=== PATIENT | male | born 1930 | race Caucasian/White ===

== ENCOUNTER 2016-09-06 16:08 | Emergency (ER) | payer MEDICARE, BC ==
[~2016-09-06 16:08] MED LIST: Sterile Water Irrigation 250 ML BOT ONE
[2016-09-06] MEDS ORDERED: Triple Antibiotic Oint 1 GM Packet ONE (16:44)
[2016-09-06] MEDS ORDERED: traMADol HCl 50 MG TAB ONE (16:44)
[2016-09-06] MEDS ORDERED: Adacel (T-DAP) 0.5 ML VIAL ONE (16:44)
[2016-09-06] MEDS ORDERED: Cephalexin 500 MG CAP ONE (16:44)
--- NOTE | 2016-09-06 17:56 | CT ---
CERVICAL SPINE CT: 09/06/16 CLINICAL HISTORY: Pain, fall. FINDINGS: The craniocervical junction is intact. There is no evidence of compression fracture or traumatic sub luxation. Multilevel degenerative change present. Contents of the vertebral canal are limited in ass essment by noncontrast imaging. IMPRESSION: No acute cervical spine fracture, or traumatic subluxation. POS: [facility]
--- NOTE | 2016-09-06 17:59 | CT ---
HEAD CT NONCONTRAST 09/06/16 CLINICAL HISTORY: Fall, left facial trauma. COMPARISON: 02/05/11. FINDINGS: There is prominence of ventricular system related to patient's age with parenchymal atrophy as well as mild to moderate chronic microvascular ischemic disease. There is no evidence of acute intracrani al hemorrhage, mass effect or midline shift. There are lacunar infarctions involving the cerebellum bilaterally. IMPRESSION: No acute intracranial hemorrhage or mass effect. POS: [facility]
--- NOTE | 2016-09-06 18:01 | CT ---
CT OF FACE NONCONTRAST: 09/06/16 INDICATION: Fall with facial injury. FINDINGS: There is a mildly displaced right side nasal bone fracture. Partial opacification of right maxillary sinus is present and there is mucosal thickening of the ethmoid air cells. Otherwise, no acute para nasal sinus fluid level is present. There is no evidence of a displaced orbital wall fracture. Bilat eral temporomandibular joint osteoarthritis is present. The left buccal soft tissue hematoma present . The anterior aspect of the underlying left zygomatic arch is intact. IMPRESSION: Mildly displaced nasal bone fracture. Left buccal region soft tissue hematoma. POS: [facility]
== END 2016-09-06 18:45 | disposition home or self-care (01) ==
LOC: MADERS 16:08
DX: T07 Unspecified multiple injuries (principal); S00.03XA Contusion of scalp, initial encounter; S00.83XA Contusion of other part of head, initial encounter; G20 Parkinson's disease; Z87.891 Personal history of nicotine dependence; W19.XXXA Unspecified fall, initial encounter
CPT/HCPCS: 70450; 70486; 72125; 90471; 90715

== ENCOUNTER 2016-11-15 08:49 | Outpatient (CLI) | payer MEDICARE, BC ==
[2016-11-15 09:18] LABS: Hemoglobin A1c 6.8 % (4.0-6.0)
[2016-11-15 10:04] LABS: ALT (SGPT) 9 U/L (8-55); AST (SGOT) 13 U/L (5-34); Albumin 4.1 g/dL (3.4-4.8); Alkaline Phosphatase 65 U/L (40-150); Anion Gap 19 mmol/L (10-20); BUN (Urea Nitrogen) 19 mg/dL (8.4-25.7); Bilirubin, Direct 0.3 mg/dL (0.1-0.3); Bilirubin, Total 0.8 mg/dL (0.2-1.2); Calc. Creatinine Clearance 0 mL/min (70-130); Calcium 9.4 mg/dL (7.8-10.44); Carbon Dioxide 22 mmol/L (23-31); Chloride 101 mmol/L (98-107); Cholesterol 105 mg/dl (< 200 Desired); Estimated GFR-MDRD 72; Glucose 145 mg/dL (83-110); HDL Cholesterol 26 mg/dL (>60 Neg Risk); LDL Cholesterol, Calculated 49 mg/dL; Potassium 4.3 mmol/L (3.5-5.1); Protein, Total 6.8 g/dL (5.8-8.1); Sodium 138 mmol/L (136-145); Triglycerides 148 mg/dL (Less than 150)
== END 2016-11-15 08:50 | disposition home or self-care (01) ==
LOC: MADLAB 08:49
PROVIDERS: ATTEND Internal Medicine Cardiovascular Disease
DX: I25.10 Atherosclerotic heart disease of native coronary artery without angina pectoris (principal)
CPT/HCPCS: 36415; 80048; 80061; 80076; 83036

== ENCOUNTER 2017-07-23 09:56 | Outpatient (CLI) | payer MEDICARE, BC ==
[2017-07-23 11:15] LABS: #Basophils 0.1 thou/uL (0.0-0.2); #Eosinphils 0.3 thou/uL (0.0-0.7); #Lymphocytes 1.8 thou/uL (1.20-3.40); #Monocytes 0.5 thou/uL (0.11-0.59); #Neutrophils 3.9 thou/uL (1.40-6.50); %Basophils 0.8 % (0.0-1.0); %Eosinophils 4.4 % (0.0-10.0); %Monocytes 7.3 % (0.0-10.0); %Neutrophils 59.5 % (42.0-75.0); Hemoglobin 15.3 g/dL (14.0-18.0); Mean Corpuscular HGB CONC 32.1 g/dL (32.0-36.0); Mean Corpuscular Hemoglobin 33.5 pg (27.0-31.0); Mean Corpuscular Volume 104.4 fl (80.0-94.0); Mean Platelet Volume 9.7 fL (7.4-10.4); Platelet Count 129 thou/uL (130-400); RBC Distribution Width 12.3 % (11.5-14.5); Red Blood Cell (RBC) Count 4.58 mill/uL (4.70-6.10); White Blood Cell (WBC) Count 6.5 thou/uL (4.8-10.8)
[2017-07-23 11:38] LABS: ALT (SGPT) 11 U/L (8-55); AST (SGOT) 12 U/L (5-34); Albumin 4.1 g/dL (3.4-4.8); Alkaline Phosphatase 66 U/L (40-150); Anion Gap 15 mmol/L (10-20); BUN (Urea Nitrogen) 13 mg/dL (8.4-25.7); Bilirubin, Direct 0.3 mg/dL (0.1-0.3); Bilirubin, Total 0.7 mg/dL (0.2-1.2); Calc. Creatinine Clearance 0 mL/min (70-130); Calcium 9.5 mg/dL (7.8-10.44); Carbon Dioxide 27 mmol/L (23-31); Cardiac Risk 3.7 (Less than 4.5); Chloride 105 mmol/L (98-107); Cholesterol 110 mg/dl (< 200 Desired); Estimated GFR-MDRD 70; Glucose 156 mg/dL (83-110); HDL Cholesterol 30 mg/dL (>60 Neg Risk); LDL Cholesterol, Calculated 60 mg/dL; Potassium 4.4 mmol/L (3.5-5.1); Protein, Total 6.5 g/dL (5.8-8.1); Sodium 143 mmol/L (136-145); Triglycerides 101 mg/dL (Less than 150)
[2017-07-23 17:17] LABS: Hemoglobin A1c 6.5 % (4.0-6.0)
== END 2017-07-23 09:57 | disposition home or self-care (01) ==
LOC: MADLABBHPM 09:56
PROVIDERS: ATTEND Family Medicine
DX: E78.00 Pure hypercholesterolemia, unspecified (principal); R82.90 Unspecified abnormal findings in urine; E11.9 Type 2 diabetes mellitus without complications; R53.1 Weakness
CPT/HCPCS: 36415; 80048; 80061; 80076; 83036; 84443; 85025

== ENCOUNTER 2017-07-24 09:05 | Outpatient (CLI) | payer MEDICARE, BC ==
[2017-07-24 13:37] LABS: Bilirubin Negative (Negative); Blood, Urine Negative (Negative); Clarity Clear (Clear); Glucose, Urine (Dipstick) Negative (Negative); Leukocyte Negative (Negative); Nitrite Negative (Negative); Protein, Urine (Dipstick) Negative (Neg-Trace); Urobilinogen 0.2 mg/dL (0.2-1.0); pH, Urine 5.5 (5.0-9.0)
[2017-07-24 13:41] LABS: Bacteria/HPF Rare-Few HPF (None Seen); RBC/HPF 0-3 HPF (0-3); Squamous Epithelial 0-3 HPF (0-3); WBC/HPF 0-3 HPF (0-3)
== END 2017-07-24 09:06 | disposition home or self-care (01) ==
LOC: MADLABBHPM 09:05
PROVIDERS: ATTEND Family Medicine
DX: R82.90 Unspecified abnormal findings in urine (principal)
CPT/HCPCS: 36415; 81001; 87086

== ENCOUNTER 2017-12-02 13:21 | Emergency (ER) | payer MEDICARE, BC ==
[2017-12-02 14:01] LABS: #Eosinphils 0.3 thou/uL (0.0-0.7); #Lymphocytes 1.8 thou/uL (1.20-3.40); #Monocytes 0.5 thou/uL (0.11-0.59); #Neutrophils 4.1 thou/uL (1.40-6.50); %Basophils 0.6 % (0.0-1.0); %Eosinophils 4.1 % (0.0-10.0); %Lymphocytes 26.9 % (21.0-51.0); %Neutrophils 61.4 % (42.0-75.0); Hemoglobin 14.2 g/dL (14.0-18.0); Mean Corpuscular HGB CONC 32.4 g/dL (32.0-36.0); Mean Corpuscular Hemoglobin 32.3 pg (27.0-31.0); Mean Corpuscular Volume 99.7 fL (78.0-98.0); Mean Platelet Volume 8.2 fL (7.4-10.4); Platelet Count 134 thou/uL (130-400); RBC Distribution Width 12.1 % (11.5-14.5); Red Blood Cell (RBC) Count 4.41 mill/uL (4.70-6.10); White Blood Cell (WBC) Count 6.6 thou/uL (4.8-10.8)
[2017-12-02 14:05] LABS: INR-International Normal Ratio 0.9; Prothrombin Time 12.7 SEC (12.0-14.7)
[2017-12-02 14:15] LABS: ALT (SGPT) Less than 7 U/L (8-55); AST (SGOT) 9 U/L (5-34); Albumin 3.9 g/dL (3.4-4.8); Alkaline Phosphatase 59 U/L (40-150); Anion Gap 15 mmol/L (10-20); BUN (Urea Nitrogen) 19 mg/dL (8.4-25.7); Bilirubin, Total 0.6 mg/dL (0.2-1.2); Calc. Creatinine Clearance 0 mL/min (70-130); Calcium 9.5 mg/dL (7.8-10.44); Carbon Dioxide 23 mmol/L (23-31); Chloride 106 mmol/L (98-107); Estimated GFR-MDRD 90; Globulin 2.6 g/dL (2.4-3.5); Glucose 175 mg/dL (83-110); Potassium 4.3 mmol/L (3.5-5.1); Protein, Total 6.5 g/dL (5.8-8.1); Sodium 140 mmol/L (136-145)
--- NOTE | 2017-12-02 14:51 | CT ---
CT BRAIN WITHOUT CONTRAST: HISTORY: Fall. Alzheimer's. Dementia. COMPARISON: CT brain 09/06/16. FINDINGS: There is mild atrophy. 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 No midline shift or mass effect. Moderate atrophy with ex vacuo dilatation of the ventricular system and extraaxial CSF spaces. Old right nasal bone fracture. IMPRESSION: Chronic changes. No acute intracranial abnormality. POS: [facility]
--- NOTE | 2017-12-02 15:16 | CT ---
NONCONTRAST CT THORAX: DATE: 12/02/17. HISTORY: Fall 2 weeks ago. Persistent chest pain. Injury. COMPARISON: None available. FINDINGS: Dense atherosclerotic vascular calcifications are seen in the coronary arteries as well as involving the thoracic aorta and visualized abdominal aorta. There is an abdominal aortic aneurysm partially i lisa which measures 4.12 cm x 3.8 cm in greatest axial dimensions. This previously measured 3.3 cm in maximum dimensions on the prior study in 2005. Lack of intravenous contrast does limit evaluation of mediastinal structures and vasculature. Howeve r, no enlarged lymph nodes are seen by CT size criteria. Postsurgical changes related to CABG are no scotty. There is dependent atelectasis bilaterally. This exam is obtained in expiratory phase of imaging. N o discrete pulmonary nodule or mass is seen. There is no pleural effusion or pulmonary nodule presen t. There are 2 hypodense lesions seen in the right hepatic lobe which were also seen on CT exam in 2006 and given stability over this period of time suggests benign finding or likely related to hepatic cys ts. There is mild nonspecific symmetric bilateral perinephric stranding. There is colonic diverticulosis. The spleen, pancreas, and bilateral adrenal glands demonstrate a grossly normal nonenhanced CT appear ance. CT THORACIC SPINE: Vertebral body heights are within normal limits. There is a prominent Schmorl's node in the superior end plate of the T12 vertebral body. The remaining vertebral body heights are within normal limits and there is no fracture or subluxation involving the thoracic spine. Multilevel degenerative change s are seen in the visualized lower cervical spine as well as involving the thoracic spine and lower l umbar spine. There is bilateral glenohumeral osteoarthropathy. IMPRESSION: 1. Limited examination due to lack of intravenous contrast, but no definite acute findings are visua lized within the chest. 2. Extensive atherosclerotic vascular calcifications involving the coronary arteries as well as the thoracic and abdominal aorta. 3. Abdominal aortic aneurysm measuring 4.1 cm in greatest dimensions. This is larger in size compar ed to the study on 02/18/06 where the greatest measurement was 3.3 cm. 4. There is a coarse calcification in the region of an enlarged left periaortic lymph node seen on t he study in 2005. There is no lymphadenopathy seen on today's exam. 5. Right hepatic lobe cyst. 6. Colonic diverticulosis. 7. Degenerative changes in the spine. POS: [facility]
--- NOTE | 2017-12-02 15:18 | CT ---
CT CERVICAL SPINE WITHOUT CONTRAST: Date: 12/02/17 INDICATION: History of fall with neck pain. COMPARISON: Prior exam dated 09/06/16. FINDINGS: No acute fracture or subluxation is evident. Mild to moderate spondylosis involving the cervical spin e is stable. Craniocervical junction appears within normal limits. Chronic lung changes involving the lung apices appear similar. IMPRESSION: No acute fracture or subluxation is demonstrated. Stable spondylosis. POS: [facility]
== END 2017-12-02 16:00 | disposition home or self-care (01) ==
LOC: MADERS 13:21
DX: M54.6 Pain in thoracic spine (principal); Z87.891 Personal history of nicotine dependence; Z79.899 Other long term (current) drug therapy; Z79.84 Long term (current) use of oral hypoglycemic drugs; G20 Parkinson's disease; W18.30XA Fall on same level, unspecified, initial encounter
CPT/HCPCS: 36415; 70450; 71250; 72125; 80053; 83880; 84484; 85025; 85610; 93005

== ENCOUNTER 2018-10-28 14:24 | Inpatient (IN) | payer MEDICARE, BC ==
[~2018-10-28 14:24] MED LIST changes: +Iopamidol 370 76% 100 ML VIAL ONE; +Sodium Chloride 0.9% 1,000 ML BAG ONE; -Sterile Water Irrigation 250 ML BOT ONE
[2018-10-28 15:37] LABS: #Eosinphils 0.2 thou/uL (0.0-0.7); #Lymphocytes 1.6 thou/uL (1.20-3.40); #Monocytes 0.6 thou/uL (0.11-0.59); #Neutrophils 4.4 thou/uL (1.40-6.50); %Basophils 0.7 % (0.0-1.0); %Eosinophils 2.5 % (0.0-10.0); %Lymphocytes 23.5 % (21.0-51.0); %Monocytes 8.5 % (0.0-10.0); %Neutrophils 64.8 % (42.0-75.0); Hemoglobin 15.3 g/dL (14.0-18.0); Mean Corpuscular HGB CONC 31.8 g/dL (32.0-36.0); Mean Corpuscular Hemoglobin 32.4 pg (27.0-31.0); Mean Corpuscular Volume 101.7 fL (78.0-98.0); Platelet Count 166 thou/uL (130-400); RBC Distribution Width 13.1 % (11.5-14.5); Red Blood Cell (RBC) Count 4.72 mill/uL (4.70-6.10); White Blood Cell (WBC) Count 6.7 thou/uL (4.8-10.8)
[2018-10-28 15:47] LABS: ALT (SGPT) Less than 7 U/L (8-55); AST (SGOT) 16 U/L (5-34); Albumin 4.1 g/dL (3.4-4.8); Alkaline Phosphatase 97 U/L (40-150); Anion Gap 16 mmol/L (10-20); BUN (Urea Nitrogen) 14 mg/dL (8.4-25.7); Bilirubin, Total 0.6 mg/dL (0.2-1.2); Calc. Creatinine Clearance 0 mL/min (70-130); Calcium 9.5 mg/dL (7.8-10.44); Carbon Dioxide 22 mmol/L (23-31); Chloride 105 mmol/L (98-107); Estimated GFR-MDRD Greater than 90; Globulin 3.2 g/dL (2.4-3.5); Glucose 101 mg/dL (83-110); Potassium 4.4 mmol/L (3.5-5.1); Protein, Total 7.3 g/dL (5.8-8.1); Sodium 139 mmol/L (136-145)
[2018-10-28 19:25] LABS: Lactic Acid 2.4 mmol/L (0.5-2.2)
--- NOTE | 2018-10-28 20:02 | CT ---
CT CHEST, ABDOMEN AND PELVIS WITH IV CONTRAST CT THORACIC AND LUMBAR SPINE: 10/28/18 HISTORY: Pain to right abdomen and thorax. Hypoxia. Patient states fell two days ago. Injury. COMPARISON: CT thorax of 12/02/17. FINDINGS: Dense vascular calcifications are seen in the thoracic aorta and involving the coronal arteries. Ther e are no findings to suggest an aortic injury. Postsurgical changes related to CABG are again seen. This exam is obtained in expiratory phase of imaging with resultant atelectasis bilaterally. No pneum othorax or pleural effusion is identified. Osteopenia is present. Nondisplaced fractures are seen involving the anterolateral right sixth and se venth ribs. CT ABDOMEN AND PELVIS: There are multiple subcentimeter too small to characterize hypodense lesions seen in each lobe of the liver. A larger 1.4 cm hypodense lesion is seen in the right hepatic lobe. These hypodense lesions w ere seen on a CT abdomen in 2006 and are most likely related to cysts. The spleen, pancreas, bilateral adrenal glands, and kidneys demonstrate a normal CT appearance for a rterial phase of imaging. The urinary bladder is decompressed. There is a calcification seen within the right posterolateral as pect of the urinary bladder. This may represent calcification in the wall of the urinary bladder vers us calculus layering within the dependent portion of the urinary bladder. Prostate gland demonstrates calcifications and heterogeneous appearance. There is a large amount of retained fecal material seen within the rectum. There is slight haziness s urrounding the distended rectum which is dilated and measuring 11.2 cm in diameter. There is mild haz iness of the perirectal fat. There is suggested thinning of the harrell of the rectum, and foci of gas within the wall of the rectum is not entirely excluded. Findings could be related to stercoral colit is. Clinical correlation is recommended. There is evidence of colonic diverticulosis. An infrarenal abdominal aortic aneurysm is seen measuring 4.5 cm x 4 cm with associated mural thrombu s. Measurements on the CT scan exam in 2018 were 4.1 cm x 3.8 cm. No free fluid or free intraperitoneal gas is seen in the abdomen or pelvis. CT THORACIC AND LUMBAR SPINE: There is suggestion of slight wedge shaped deformity of the T8 vertebral body which is more pronounce d than on prior exam on 12/02/17 and this may represent a minimal compression fracture of the T8 verte bral body of indeterminate age. Remaining vertebral body heights are within normal limits and there i s no subluxation. Multilevel degenerative changes are seen in the thoracic as well as involving the l umbar spine. IMPRESSION: 1. Findings suggestive of stercoral colitis with dilatation of the rectum and fecal impaction wi th areas of severe focal thinning of the harrell of the rectum. There are a few areas of severe thinnin g versus gas within the bowel wall in this region. There is no portal venous gas seen. No free intrap eritoneal gas is identified. 2. Nondisplaced right lateral sixth and seventh rib fractures. No pneumothorax or pleural effusi on is seen. 3. Atherosclerotic vascular calcifications and plaque with evidence of an infrarenal abdominal a ortic aneurysm mildly enlarged when compared to prior exam with greatest transverse dimension of 4.5 cm. 4. Calcification right posterolateral aspect of the urinary bladder which could be related to ca lcification in the wall of the urinary bladder versus calculus layering dependently. 5. Above findings were discussed with Dr. Bender in the Emergency Department on 10/28/18 at 1654 ho urs including findings suggesting stercoral colitis and questionable air within the rectal wall. POS: [facility]
[2018-10-28] MEDS ORDERED: Ondansetron PF 4 MG/2 ML Vial SLOW IVP PRN (21:54)
[2018-10-28] MEDS ORDERED: HYDROcodone/Acetaminophen 5/325 mg Tablet PO PRN ×2 (21:54)
[2018-10-28] MEDS ORDERED: Loratadine 10 MG TAB PO PRN (22:00)
[2018-10-28] MEDS ORDERED: Temazepam 15 MG CAP PO SCH (22:15)
[2018-10-28] MEDS ORDERED: Senokot S 8.6-50 MG TAB PO SCH (22:15)
[2018-10-28] MEDS ORDERED: Lorazepam 1 MG TAB PO PRN (22:15)
[2018-10-28] MEDS: Acetaminophen/Codeine 30-300mg Tablet PO PRN (22:19)
[2018-10-28] MEDS ORDERED: Polyethylene Glycol 3350 17 GM Packet PO SCH (22:30)
[2018-10-28 23:16] VITALS: BMI 21.9
[2018-10-29 05:19] LABS: #Basophils 0.1 thou/uL (0.0-0.2); #Eosinphils 0.3 thou/uL (0.0-0.7); #Lymphocytes 2.1 thou/uL (1.20-3.40); #Monocytes 0.5 thou/uL (0.11-0.59); #Neutrophils 2.7 thou/uL (1.40-6.50); %Eosinophils 4.8 % (0.0-10.0); %Lymphocytes 37.2 % (21.0-51.0); %Neutrophils 48.1 % (42.0-75.0); Hemoglobin 14.2 g/dL (14.0-18.0); Mean Corpuscular HGB CONC 32.8 g/dL (32.0-36.0); Mean Corpuscular Hemoglobin 33.1 pg (27.0-31.0); Mean Platelet Volume 7.7 fL (7.4-10.4); Platelet Count 143 thou/uL (130-400); RBC Distribution Width 13.1 % (11.5-14.5); Red Blood Cell (RBC) Count 4.29 mill/uL (4.70-6.10); White Blood Cell (WBC) Count 5.6 thou/uL (4.8-10.8)
[2018-10-29 05:27] LABS: Anion Gap 12 mmol/L (10-20); BUN (Urea Nitrogen) 11 mg/dL (8.4-25.7); Calc. Creatinine Clearance 74 mL/min (70-130); Calcium 8.8 mg/dL (7.8-10.44); Carbon Dioxide 28 mmol/L (23-31); Chloride 106 mmol/L (98-107); Estimated GFR-MDRD Greater than 90; Glucose 85 mg/dL (83-110); Potassium 4.2 mmol/L (3.5-5.1); Sodium 142 mmol/L (136-145)
[2018-10-29] MEDS ORDERED: Hydrocerin (Eucerin) Cream 120 gm Jar TOP PRN (07:53)
[2018-10-29] MEDS: Senokot S 8.6-50 MG TAB PO SCH (08:29)
[2018-10-29] MEDS: Polyethylene Glycol 3350 17 GM Packet PO SCH ×8 (08:29→19:21)
[2018-10-29] MEDS: Pramipexole Di-HCl 0.25 MG TAB PO SCH ×2 (08:29→15:08)
[2018-10-29] MEDS: Aspirin 81 mg Enteric Coated Tablet PO SCH (08:30)
[2018-10-29] MEDS: metFORMIN 500 MG TAB PO SCH ×2 (08:30→17:02)
[2018-10-29] MEDS: Carbidopa/Levodopa CR 50-200 mg Tablet PO SCH ×2 (08:30→15:07)
[2018-10-29] MEDS ORDERED: Hydrocerin (Eucerin) Cream 120 gm Jar TOP SCH (09:00)
[2018-10-29] MEDS ORDERED: Prevnar 13-Val Conj/PF 0.5 ML SYRINGE IM ONE (09:00)
[2018-10-29] MEDS ORDERED: Famotidine/PF 20 mg/2ml Vial SLOW IVP SCH (09:00)
[2018-10-29] MEDS ORDERED: Enoxaparin Sodium 40 MG/0.4 ML SYRINGE SC SCH (09:00)
[2018-10-29] MEDS: Acetaminophen/Codeine 30-300mg Tablet PO PRN (09:20)
[2018-10-29] MEDS ORDERED: Bisacodyl 10 MG SUPP PR PRN (09:35)
[2018-10-29] MEDS ORDERED: Bisacodyl 10 MG SUPP PR SCH ×2 (09:45→16:00)
[2018-10-29] MEDS: Mineral Oil ENEMA PR SCH ×2 (10:03→16:55)
[2018-10-29] MEDS ORDERED: Mineral Oil ENEMA PR SCH (10:45)
[2018-10-29 12:12] LABS: Hemoglobin A1c 5.7 % (4.0-6.0)
[2018-10-29] MEDS ORDERED: EUCERIN CREME 57 GRAM TUBE TP PRN (13:32)
[2018-10-29] MEDS ORDERED: Lorazepam 1 MG TAB PO PRN (13:39)
[2018-10-29] MEDS: Lorazepam 0.5 MG TAB PO PRN ×2 (13:50→15:06)
[2018-10-29] MEDS ORDERED: Lorazepam 0.5 MG TAB PO SCH (16:00)
[2018-10-29] MEDS ORDERED: Polyethylene Glycol 3350 17 GM Packet PO SCH (16:00)
--- NOTE | 2018-10-29 19:40 | RAD ---
PORTABLE AP CHEST X-RAY 10/29/18 HISTORY: Low oxygen saturation. COMPARISON: 02/05/11 and 07/10/12. FINDINGS: Postsurgical changes related to CABG are again noted. Cardiac silhouette is magnified by patient rota tion and portable technique of the exam as well as shallow depth of inspiration. Pulmonary vasculatur e is within normal limits. There is atelectasis present at the left lung base. Lungs otherwise appear grossly clear. There is no pleural effusion or consolidation seen. Vascular calcifications are seen in the thoracic aorta. Remote left sided rib fractures are again seen. IMPRESSION: Stable chest without evidence of an acute cardiopulmonary process. POS: [facility]
[2018-10-29] MEDS ORDERED: Enoxaparin Sodium 80 MG/0.8 ML SYRINGE ONE (22:15)
[2018-10-30] MEDS ORDERED: Aspirin 81 mg Enteric Coated Tablet ONE (07:27)
[2018-10-30] MEDS ORDERED: metFORMIN 500 MG TAB ONE (07:49)
[2018-10-30] MEDS ORDERED: Pramipexole Di-HCl 0.25 MG TAB ONE (07:51)
[2018-10-30] MEDS ORDERED: Senokot S 8.6-50 MG TAB ONE (07:51)
[2018-10-30] MEDS ORDERED: Carbidopa/Levodopa CR 50-200 mg Tablet ONE (07:52)
[2018-10-30] MEDS: Aspirin 81 mg Enteric Coated Tablet PO SCH (08:00)
[2018-10-30] MEDS: Carbidopa/Levodopa CR 50-200 mg Tablet PO SCH ×4 (08:00→21:17)
[2018-10-30] MEDS: Pramipexole Di-HCl 0.25 MG TAB PO SCH ×4 (08:00→21:18)
[2018-10-30] MEDS: Senokot S 8.6-50 MG TAB PO SCH ×3 (08:00→21:20)
[2018-10-30] MEDS: metFORMIN 500 MG TAB PO SCH ×2 (08:00→17:05)
--- NOTE | 2018-10-30 08:47 | CT ---
CT PULMONARY ANGIOGRAM WITH IV CONTRAST AND 3D POSTPROCESSING: HISTORY: Elevated D-dimer. FINDINGS: There is good contrast opacification of the pulmonary arterial vasculature without filling defects to suggest pulmonary embolism. The thoracic aorta is well opacified without aneurysm or dissection. N o pleural or pericardial effusions are seen. There are dependent changes in the lung bases. No pneu mothoraces or focal areas of consolidation are seen. Nondisplaced right lateral 6th and 7th rib frac tures noted on CT chest, abdomen, and pelvis of previous day are seen. IMPRESSION: No CT evidence of pulmonary embolism. POS: [facility]
--- NOTE | 2018-10-30 09:38 | HP ---
Admitted to Acute Care at [facility] on the evening of 10/28/2018. CHIEF COMPLAINT: Fall, pain in the right lateral chest, and constipation. HISTORY OF PRESENT ILLNESS: The patient is an 88-year-old white male, who resides at home. He has a history of Parkinson disease, dementia with behavioral disturbance, insomnia, coronary artery disease, diabetes mellitus type 2, hypertension, and hypoxemia requiring supplemental O2. The patient has been under hospice care. He lives at his home, where he is attended by his and family members and ladies who had been hired to come in and assist. The patient is very weak and requires assistance with his ADLs. The patient had gotten up out of bed on his own early on the morning of 10/26, and his caregivers found him slumped down the floor. He was not unconscious, and they were able to assist him back to the bed. Since that time, he has been complaining of some pain in the right lower anterolateral chest wall. He has not had any trouble with his breathing, but he still requires the oxygen. He also notices that he seems to be weaker than usual and requiring more help than usual. His bowels have not been moving very well. He has had severe problems with constipation and this has gotten worse where he has not had much of a bowel movement for several days. It was elected to bring him to the emergency room due to the pain in the right lower lateral chest after the fall because of the increasing trouble with constipation and due to the increasing weakness. He is under hospice care, but they have elected to discharge him from hospice and bring him in for evaluation. The patient was initially evaluated by the EMS. They found him very weak and his O2 saturation off O2 was in the 80s. Upon arrival at the emergency room on 2 L, his O2 saturation was only 89%, but with the 3 L, it came up into the mid 90s. The patient underwent evaluation, was found on CT scan of the chest and the abdomen to have nondisplaced fracture of the right 6th and 7th ribs that were nondisplaced. There was no effusion. The lungs were clear. The patient did have finding suggestive of a stercoral colitis with dilation of the rectum and large fecal impaction and areas of severe thinning in the harrell of the rectum. There was no free air seen. He also had a large amount of stools present in the colon. The emergency room physician had initially evaluated him and had examined him and did some disimpaction, and then, he was admitted due to the rib fractures, the falls, the increased weakness, and the severe constipation and fecal impaction. The patient was seen early on the morning of 10/29/2018. He was sleeping, and was easily aroused. He was very pleasant, but was not sure where he was and really what had happened with him. I have reviewed my records on the patient, hospice records, and the ER records. I have spoken to his , Mirna, who is able to fill in the above history for me. PAST MEDICAL HISTORY: Parkinson disease, dementia with behavioral disturbance; hypertension; diabetes type 2; coronary artery disease, for which he has undergone coronary artery bypass surgery; hypoxemia requiring supplemental O2; hypercholesterolemia; non-Hodgkin lymphoma treated with chemotherapy and he is now over 5 years post treatment with no signs of disease; GERD; intention tremors. Echocardiogram on 11/22/2016 showed EF of 55% to 60%, moderate aortic regurgitation and aortic sclerosis, but no stenosis. MRI of the brain on 08/23/2016 showed cortical loss and some microvascular changes. The patient has had coronary artery bypass x4, appendectomy, colonoscopy, bilateral inguinal hernia repair. PRESENT MEDICATIONS: 1. Acetaminophen 325 mg 2 every 4 hours as needed. 2. Aspirin 81 mg daily. 3. Tylenol with Codeine No. 3. one every 4 hours as needed. 4. Carbidopa-levodopa CR 50/200 one half a tablet t.i.d. 5. Loratadine 10 mg daily p.r.n. 6. Lorazepam 1 mg every 4 hours as needed. 7. Metformin 1000 mg b.i.d. 8. MiraLAX 17 g, 8 ounces of water daily that he drinks, and prune juice. 9. Mirapex 0.125 mg t.i.d. 10. Temazepam 15 mg at bedtime. 11. Crestor 10 mg daily. 12. Morphine Concentrate 20 mg/mL, 0.5 to 1 mL every 2 hours p.r.n. pain. ALLERGIES: PENICILLIN. REVIEW OF SYSTEMS: GENERAL: The patient said he feels all right. He denied any headache pulmonary failure. EARS, NOSE, AND THROAT: No complaints. PULMONARY: No shortness of breath. CARDIOVASCULAR: No anterior chest pain. The patient is sore along the right lower anterolateral chest. ABDOMEN: No nausea or vomiting. Family said he has been very constipated. : Incontinent of urine ADLs: He can walk short distances with a walker. Requires help with bathing and dressing. He is able to assist with feeding himself. Instrumental ADLs: Handled by the family. HABITS: Alcohol, none. Tobacco, none. SOCIAL HISTORY: The patient is , lives with his in his home. She serves as primary caregiver along with hired caregiver and with hospice. CODE STATUS: DNR. PHYSICAL EXAMINATION: GENERAL: Shows a pleasant 88-year-old white male, who is lying in bed. He is alert, appears comfortable, and in no distress. VITAL SIGNS: Show a temperature of 96.7, pulse 60, respirations 16, O2 saturation 94% on 3 L, blood pressure 143/78, weight 162. Last weight in my office in September 23, 2018 was 190. HEENT: Head, normocephalic and atraumatic. Eyes, pupils are equal, round, and reactive. Sclerae are nonicteric. Ears, TMs are clear. Nose normal. Mouth and throat, normal. NECK: Carotids are equal and strong. No bruits. Thyroid not enlarged. LUNGS: Clear. HEART: Regular rate. No murmurs. Chest wall, there is no bruising. The patient has some tenderness along the right lower anterolateral chest. ABDOMEN: Soft. No organomegaly nor areas of tenderness. EXTREMITIES: No edema. There are some abrasions on the knees. NEUROLOGIC: The patient is alert. He has severe generalized weakness, but this is nonfocal. His movement is very slow. He is disoriented to time, place, and situation. IMPRESSION: 1. Fall. a. Occurred on 10/26/2018. b. Etiology secondary to his severe weakness and gait abnormality. c. Resulting in closed and displaced fracture of the right lateral sixth and seventh ribs. 2. Severe generalized weakness. a. Complicated by a fall. b. Requires assistance with all of his ADLs. 3. Severe constipation. a. Complicated by large fecal impaction with possible stercoral colitis. 4. Advanced Parkinson disease. 5. Dementia. a. Complicated by behavioral issues. 6. Coronary artery disease. a. Status post coronary artery bypass surgery. b. Asymptomatic. 7. Hypercholesterolemia. 8. History of compression fracture of T8. a. CT scan of the thoracic lumbar spine showed little increased prominence of the compression of T8. PLAN: The patient has been admitted to acute care due to his marked increased weakness and fall that resulted in the rib fracture. The rib fracture is nondisplaced and this will be managed with just pain control. I have started him on a bowel program to try to help clean the bowels out and also eliminate the fecal impaction. We will continue the patient on bowel program to hopefully prevent the constipation. We will have PT and OT evaluate the patient for his severe weakness and gait abnormality. See orders. Job ID: [id number] [facility]
[2018-10-30] MEDS: EUCERIN CREME 57 GRAM TUBE TP SCH ×3 (09:40→21:18)
[2018-10-30] MEDS: Polyethylene Glycol 3350 17 GM Packet PO SCH (10:17)
[2018-10-30] MEDS: Temazepam 15 MG CAP PO SCH ×2 (10:18→21:21)
[2018-10-30] MEDS: Acetaminophen 325 MG TAB PO PRN ×2 (10:21→15:25)
[2018-10-30] MEDS: Rivastigmine 9.5mg/24 Hour PATCH TD SCH (10:25)
[2018-10-30] MEDS ORDERED: Albuterol Sulfate 1.25 MG/3 ML NEB ONE (11:13)
--- NOTE | 2018-10-30 12:22 | PRG ---
DATE OF SERVICE: 10/30/2018 SUBJECTIVE: The patient was given multiple 8-ounce doses of MiraLAX yesterday these by an hour within his tolerance. We were able to get several glasses down him. He has had some small bowel movements. The nurses checked him Dulcolax suppository and said the stools are just soft. He has continued to take the Senokot S tablets two twice today. At times, he gets a little restless and wanting to go home, but usually he is able to be redirected. Last evening, his O2 saturation had dropped into the 80s and was able to come up to the low 90s on 4 to 5 L by nasal cannula. D-dimer was done and was elevated to 1.4. A chest x- ray was done, which showed his chest was stable with no evidence of acute cardiopulmonary process. There was a CT angio of the chest that was done last evening due to the elevated D-dimer and the hypoxemia. There was no evidence of pulmonary embolism. The CT did show the right lateral sixth and seventh right rib fractures that are nondisplaced. The report on the CT scan was unavailable last evening after this was done and films could not be totally reviewed because of a system failure in [facility]. The patient was started on Lovenox 75 mg that is a mg/kg every 12 hours and was treated for possible pulmonary embolism until the report could be obtain. This morning, the report is finally has come back once the system was back up and there was no evidence of pulmonary embolism. His legs have not been swelled or tender. The Lovenox was stopped this morning. Again, he has had some low O2 sats and required the supplemental O2. This apparently has been a chronic problem also at home, for which he requires his O2 frequently. OBJECTIVE: GENERAL: This morning, the patient is alert. He is sitting up on a NuStep, working his hands and feet. He is confused, but he is very pleasant and appears in no distress. VITAL SIGNS: Shows a temperature of 97.9, pulse 77, respirations 18, O2 saturation 91% on 2 L. LUNGS: Clear. The patient though has poor breath sounds. HEART: Regular rate. EXTREMITIES: No edema. LABORATORY DATA: FBS this morning was 142. ASSESSMENT: 1. Fall. a. Occurred on 10/26/2018. b. Etiology secondary to his severe weakness and gait abnormality. c. Resulting in closed and displaced fracture of the right lateral sixth and seventh ribs. d. No subsequent falls as 10/30/2018. 2. Severe generalized weakness. a. Complicated by a fall. b. Requires assistance with all of his ADLs. c. Little improved, but still requires assistance with ambulation, transfers , and all ADLs as of 10/30/2018. 3. Severe constipation. a. Complicated by large fecal impaction with possible stercoral colitis. b. On laxative program, passing some small stools as of 10/30/2018. 4. Advanced Parkinson disease. 5. Dementia. a. Complicated by behavioral issues. 6. Coronary artery disease. a. Status post coronary artery bypass surgery. b. Asymptomatic. 7. Hypercholesterolemia. 8. History of compression fracture of T8. a. CT scan of the thoracic lumbar spine showed little increased prominence of the compression of T8. 9. Chronic hypoxemia. a. CT angio of the chest done on the evening of 10/29/2018 showed no evidence of pulmonary embolism or congestive heart failure or infiltrate. b. Require supplemental O2. PLAN: We will continue PT. Continue the Tylenol as needed for pain. We will try stopping the Tylenol No. 3's, and see if the Tylenol will help with the pain from the ribs. This will help alleviate some of the constipation. We will continue his bowel program. We will do a KUB to see that the impaction is resolved. Job ID: [id number] [facility]
--- NOTE | 2018-10-30 13:26 | RAD ---
ABDOMEN ONE VIEW: 10/30/18 HISTORY: Constipation and fecal impaction. COMPARISON: CT abdomen and pelvis prior day. FINDINGS: There is continued large volume stool projecting in the rectal vault. There is contrast within the ur inary bladder. No dilated air filled loops of large or small bowel. IMPRESSION: Continued large volume stool within the rectal vault. POS: [facility]
[2018-10-30 14:28] LABS: #Eosinphils 0.1 thou/uL (0.0-0.7); #Lymphocytes 2.1 thou/uL (1.20-3.40); #Monocytes 0.7 thou/uL (0.11-0.59); #Neutrophils 4.4 thou/uL (1.40-6.50); %Basophils 0.5 % (0.0-1.0); %Eosinophils 1.6 % (0.0-10.0); %Lymphocytes 28.7 % (21.0-51.0); %Monocytes 9.4 % (0.0-10.0); %Neutrophils 59.9 % (42.0-75.0); Hemoglobin 14.8 g/dL (14.0-18.0); Mean Corpuscular HGB CONC 31.6 g/dL (32.0-36.0); Mean Corpuscular Hemoglobin 32.4 pg (27.0-31.0); Mean Corpuscular Volume 102.5 fL (78.0-98.0); Platelet Count 165 thou/uL (130-400); RBC Distribution Width 12.9 % (11.5-14.5); Red Blood Cell (RBC) Count 4.58 mill/uL (4.70-6.10); White Blood Cell (WBC) Count 7.4 thou/uL (4.8-10.8)
[2018-10-30 14:48] LABS: Anion Gap 18 mmol/L (10-20); BUN (Urea Nitrogen) 11 mg/dL (8.4-25.7); Calc. Creatinine Clearance 57 mL/min (70-130); Calcium 9.4 mg/dL (7.8-10.44); Carbon Dioxide 25 mmol/L (23-31); Chloride 105 mmol/L (98-107); Estimated GFR-MDRD 75; Glucose 85 mg/dL (83-110); Potassium 4.2 mmol/L (3.5-5.1); Sodium 144 mmol/L (136-145)
[2018-10-30] MEDS ORDERED: Fleet Enema 133 ML BOT FS ONE (16:00)
[2018-10-31 05:11] LABS: #Basophils 0.1 thou/uL (0.0-0.2); #Eosinphils 0.3 thou/uL (0.0-0.7); #Lymphocytes 2.1 thou/uL (1.20-3.40); #Monocytes 0.7 thou/uL (0.11-0.59); #Neutrophils 3.2 thou/uL (1.40-6.50); %Basophils 0.8 % (0.0-1.0); %Eosinophils 4.1 % (0.0-10.0); %Monocytes 11.1 % (0.0-10.0); Hemoglobin 14.1 g/dL (14.0-18.0); Mean Corpuscular HGB CONC 33.2 g/dL (32.0-36.0); Mean Corpuscular Hemoglobin 33.5 pg (27.0-31.0); Mean Corpuscular Volume 100.7 fL (78.0-98.0); Mean Platelet Volume 7.4 fL (7.4-10.4); Platelet Count 134 thou/uL (130-400); RBC Distribution Width 13.1 % (11.5-14.5); Red Blood Cell (RBC) Count 4.21 mill/uL (4.70-6.10); White Blood Cell (WBC) Count 6.3 thou/uL (4.8-10.8)
[2018-10-31 05:25] LABS: Anion Gap 15 mmol/L (10-20); BUN (Urea Nitrogen) 15 mg/dL (8.4-25.7); Calc. Creatinine Clearance 66 mL/min (70-130); Calcium 8.9 mg/dL (7.8-10.44); Carbon Dioxide 24 mmol/L (23-31); Chloride 107 mmol/L (98-107); Estimated GFR-MDRD 89; Glucose 105 mg/dL (83-110); Potassium 3.8 mmol/L (3.5-5.1); Sodium 142 mmol/L (136-145)
[2018-10-31] MEDS: Rivastigmine 9.5mg/24 Hour PATCH TD SCH (08:24)
[2018-10-31] MEDS: Polyethylene Glycol 3350 17 GM Packet PO SCH (08:24)
[2018-10-31] MEDS: Pramipexole Di-HCl 0.25 MG TAB PO SCH (08:25)
[2018-10-31] MEDS: metFORMIN 500 MG TAB PO SCH (08:25)
[2018-10-31] MEDS: Carbidopa/Levodopa CR 50-200 mg Tablet PO SCH (08:26)
[2018-10-31] MEDS: Aspirin 81 mg Enteric Coated Tablet PO SCH (08:26)
[2018-10-31] MEDS: Senokot S 8.6-50 MG TAB PO SCH (08:26)
[2018-10-31] MEDS: EUCERIN CREME 57 GRAM TUBE TP SCH (08:28)
[2018-10-31 08:55] VITALS: BP 148/70; TEMP 96.5
[2018-10-31] MEDS: Acetaminophen 325 MG TAB PO PRN (10:02)
--- NOTE | 2018-10-31 11:44 | PRG ---
DATE OF SERVICE: 10/31/2018 SUBJECTIVE: The patient is doing better today. He has had multiple large bowel movements. He has had no complaint. He is doing a little better with physical therapy. OBJECTIVE: GENERAL: The patient is sitting up this morning in a Xochilt chair. He looks very comfortable and in no distress. VITAL SIGNS: Show a temperature 96.5, pulse 86, respirations 18, O2 saturation 94% on 2 L, blood pressure is 148/70. LUNGS: Clear. HEART: Regular rate. EXTREMITIES: No edema. LABORATORY DATA: H and H is 14.1 and 42.4, white cell count 6300 with 51% segs , 33% lymphocytes, and platelet count of 134,000. Sodium 142, potassium 3.9, BUN 15, creatinine 0.84, GFR 89, glucose 103. ASSESSMENT: 1. Fall. a. Occurred on 10/26/2018. b. Etiology secondary to his severe weakness and gait abnormality. c. Resulting in closed and displaced fracture of the right lateral sixth and seventh ribs. 1. Symptomatically improved, pain controlled as of 10/31/2018. d. No subsequent falls as 10/31/2018. 2. Severe generalized weakness. a. Complicated by a fall. b. Requires assistance with all of his ADLs. c. Improved. Tolerates sitting up in a chair. He is ambulating with a walker and assistance some as of 10/31/2018. 3. Severe constipation. a. Complicated by large fecal impaction with possible stercoral colitis. b. Much improved. Has passed multiple large bowel movements as of 10/31/2018. 4. Advanced Parkinson disease. 5. Dementia. a. Complicated by behavioral issues. 6. Coronary artery disease. a. Status post coronary artery bypass surgery. b. Asymptomatic. 7. Hypercholesterolemia. 8. History of compression fracture of T8. a. CT scan of the thoracic lumbar spine showed little increased prominence of the compression of T8. 9. Chronic hypoxemia. a. CT angio of the chest done on the evening of 10/29/2018 showed no evidence of pulmonary embolism or congestive heart failure or infiltrate. b. Require supplemental O2. c. Stable. O2 saturation 94% on 2 L. PLAN: Continue PT. Continue bowel program. If eligible, will move the patient to [facility] for further physical therapy. Job ID: [id number] [facility]
== END 2018-10-31 12:06 | disposition swing bed (61) | DRG 560 ==
LOC: MADERS 14:24 → MADMS 19:28
PROVIDERS: ADMIT Family Medicine; ATTEND Family Medicine
DX: S22.41XD Multiple fractures of ribs, right side, subsequent encounter for fracture with routine healing (principal); F02.81 Dementia in other diseases classified elsewhere, unspecified severity, with behavioral disturbance; K59.00 Constipation, unspecified; G20 Parkinson's disease; I25.10 Atherosclerotic heart disease of native coronary artery without angina pectoris; E78.00 Pure hypercholesterolemia, unspecified; G47.33 Obstructive sleep apnea (adult) (pediatric); E11.9 Type 2 diabetes mellitus without complications; I10 Essential (primary) hypertension; K21.9 Gastro-esophageal reflux disease without esophagitis; R53.1 Weakness; R09.02 Hypoxemia; Z95.1 Presence of aortocoronary bypass graft; Z85.72 Personal history of non-Hodgkin lymphomas; Z92.21 Personal history of antineoplastic chemotherapy; Z90.49 Acquired absence of other specified parts of digestive tract; Z79.82 Long term (current) use of aspirin; Z88.0 Allergy status to penicillin; W19.XXXD Unspecified fall, subsequent encounter
CPT/HCPCS: 36415; 36416; 71045; 71260; 71275; 74018; 74177; 80048; 80053; 82550; 83036; 83605; 83880; 84484; 85025; 85379; 90471; 90670; 96360; G0009; J1650; J7050; J7620; Q9967; S0028

== ENCOUNTER 2018-10-31 10:59 | Inpatient (IN) | payer MEDICARE, BC ==
[2018-10-31] MEDS ORDERED: Lorazepam 1 MG TAB PO PRN (11:48)
[2018-10-31] MEDS ORDERED: Lorazepam 0.5 MG TAB PO PRN (11:48)
[2018-10-31] MEDS ORDERED: Bisacodyl 10 MG SUPP PR PRN (11:48)
[2018-10-31 12:38] VITALS: BMI 21.9
[2018-10-31] MEDS: Carbidopa/Levodopa CR 50-200 mg Tablet PO SCH ×2 (15:13→21:15)
[2018-10-31] MEDS: Pramipexole Di-HCl 0.25 MG TAB PO SCH ×2 (15:14→21:16)
[2018-10-31] MEDS: Acetaminophen 325 MG TAB PO PRN (15:14)
[2018-10-31] MEDS: Temazepam 15 MG CAP PO SCH (21:15)
[2018-10-31] MEDS: Senokot S 8.6-50 MG TAB PO SCH (21:17)
[2018-10-31] MEDS: EUCERIN CREME 57 GRAM TUBE TP SCH (21:18)
[2018-11-01] MEDS: Acetaminophen 325 MG TAB PO PRN (04:01)
[2018-11-01] MEDS: Senokot S 8.6-50 MG TAB PO SCH ×2 (08:35→20:31)
[2018-11-01] MEDS: Aspirin 81 mg Enteric Coated Tablet PO SCH (08:36)
[2018-11-01] MEDS: metFORMIN 500 MG TAB PO SCH ×2 (08:36→17:02)
[2018-11-01] MEDS: Pramipexole Di-HCl 0.25 MG TAB PO SCH ×3 (08:36→20:33)
[2018-11-01] MEDS: Carbidopa/Levodopa CR 50-200 mg Tablet PO SCH ×3 (08:36→20:32)
[2018-11-01] MEDS: EUCERIN CREME 57 GRAM TUBE TP SCH ×2 (08:37→20:32)
[2018-11-01] MEDS: Polyethylene Glycol 3350 17 GM Packet PO SCH (08:37)
[2018-11-01] MEDS: Rivastigmine 9.5mg/24 Hour PATCH TD SCH (09:43)
[2018-11-01] MEDS: Temazepam 15 MG CAP PO SCH (20:34)
[2018-11-01] MEDS: Loratadine 10 MG TAB PO PRN (20:49)
[2018-11-02] MEDS: Pramipexole Di-HCl 0.25 MG TAB PO SCH ×3 (08:48→20:45)
[2018-11-02] MEDS: Carbidopa/Levodopa CR 50-200 mg Tablet PO SCH ×3 (08:48→20:46)
[2018-11-02] MEDS: Senokot S 8.6-50 MG TAB PO SCH ×2 (08:48→20:47)
[2018-11-02] MEDS: Polyethylene Glycol 3350 17 GM Packet PO SCH (08:48)
[2018-11-02] MEDS: Aspirin 81 mg Enteric Coated Tablet PO SCH (08:49)
[2018-11-02] MEDS: Rivastigmine 9.5mg/24 Hour PATCH TD SCH (08:49)
[2018-11-02] MEDS: EUCERIN CREME 57 GRAM TUBE TP SCH ×2 (08:49→20:45)
[2018-11-02] MEDS: metFORMIN 500 MG TAB PO SCH ×2 (08:49→16:59)
--- NOTE | 2018-11-02 15:47 | PRG ---
DATE OF SERVICE: 11/02/2018 SUBJECTIVE: The patient said he is doing okay this morning. He has had no shortness of breath at rest. He is taking his breathing treatment, wearing his O2. Nurses noticed that he has a little red spot on the skin after the rivastigmine patch has been removed. He does not complain of this area. OBJECTIVE: GENERAL: The patient is sitting up in bed, eating his breakfast his. He appears in no distress. VITAL SIGNS: His temperature is 97.8, pulse 96, respirations 16, O2 saturation 96% on 3 L, blood pressure 132/68. LUNGS: Clear. HEART: Regular rate. SKIN: The patient has a round spot over his right posterior shoulder and another one on the left, where his rivastigmine patch had been. There is no redness outside of this area. There is no rawness. It just represents some local reaction to the skin from the patch. ASSESSMENT: 1. Fall. a. Occurred on 10/26/2018. b. Etiology secondary to his severe weakness and gait abnormality. c. Resulting in closed and displaced fracture of the right lateral sixth and seventh ribs. 1. Symptomatically improved, pain controlled as of 11/02/2018. d. No subsequent falls as 11/02/2018. 2. Severe generalized weakness. a. Complicated by a fall. b. Requires assistance with all of his ADLs. c. Improved. Tolerates sitting up in a chair. He is ambulating with a walker and assistance some as of 11/02/2018. 3. Severe constipation. a. Complicated by large fecal impaction with possible stercoral colitis. b. Much improved. Has passed multiple large bowel movements as of 10/31/2018. 4. Advanced Parkinson disease. 5. Dementia. a. Complicated by behavioral issues. 6. Coronary artery disease. a. Status post coronary artery bypass surgery. b. Asymptomatic. 7. Hypercholesterolemia. 8. History of compression fracture of T8. a. CT scan of the thoracic lumbar spine showed little increased prominence of the compression of T8. 9. Chronic hypoxemia. a. CT angio of the chest done on the evening of 10/29/2018 showed no evidence of pulmonary embolism or congestive heart failure or infiltrate. b. Require supplemental O2. c. Stable with O2 saturation of 96% on 3 L. PLAN: Continue present care. Continue PT. We will apply triamcinolone cream to little red spots twice today. Job ID: [id number] [facility]
--- NOTE | 2018-11-02 15:47 | PRG ---
DATE OF SERVICE: 11/01/2018 SUBJECTIVE: The patient is sitting up in a geriatric chair with his breakfast that he has not started eating. He is awake, will answer questions, and appears in no acute distress. During the night, he had a temperature elevation to 100, was treated with Tylenol with resolution. He had a large bowel movement during the night that was malodorous. OBJECTIVE: GENERAL: The patient is alert, appears comfortable, in no distress. VITAL SIGNS: His temperature is 98.3, pulse 89, respirations 18, O2 saturation 97% on room air, and blood pressure 103/58. LUNGS: Clear, but the patient does not take deep breaths. There were no rales or rhonchi present nor wheezes. HEART: Regular rate. EXTREMITIES: No edema. ASSESSMENT: 1. Fall. a. Occurred on 10/26/2018. b. Etiology secondary to his severe weakness and gait abnormality. c. Resulting in closed and displaced fracture of the right lateral sixth and seventh ribs. 1. Symptomatically improved, pain controlled as of 11/02/2018. d. No subsequent falls as 10/31/2018. 2. Severe generalized weakness. a. Complicated by a fall. b. Requires assistance with all of his ADLs. c. Improved. Tolerates sitting up in a chair. He is ambulating with a walker and assistance some as of 11/01/2018. 3. Severe constipation. a. Complicated by large fecal impaction with possible stercoral colitis. b. Controlled, had had an another large bowel movement during the night as of 11/01/2018. 4. Advanced Parkinson disease. 5. Dementia. a. Complicated by behavioral issues. 6. Coronary artery disease. a. Status post coronary artery bypass surgery. b. Asymptomatic. 7. Hypercholesterolemia. 8. History of compression fracture of T8. a. CT scan of the thoracic lumbar spine showed little increased prominence of the compression of T8. 9. Chronic hypoxemia. a. CT angio of the chest done on the evening of 10/29/2018 showed no evidence of pulmonary embolism or congestive heart failure or infiltrate. b. Require supplemental O2. c. Stable. O2 saturation 94% on 2 L. PLAN: Continue present care. Continue PT. We will manage low-grade temperatures with Tylenol. Job ID: [id number] [facility]
[2018-11-02] MEDS: Betamethasone 0.1% Cream 15 GM TUBE TOP SCH (20:44)
[2018-11-02] MEDS: Temazepam 15 MG CAP PO SCH (20:46)
[2018-11-03] MEDS: Polyethylene Glycol 3350 17 GM Packet PO SCH (08:55)
[2018-11-03] MEDS: Carbidopa/Levodopa CR 50-200 mg Tablet PO SCH ×3 (08:56→19:59)
[2018-11-03] MEDS: metFORMIN 500 MG TAB PO SCH ×2 (08:57→17:12)
[2018-11-03] MEDS: Aspirin 81 mg Enteric Coated Tablet PO SCH (08:57)
[2018-11-03] MEDS: Pramipexole Di-HCl 0.25 MG TAB PO SCH ×3 (08:57→19:59)
[2018-11-03] MEDS: Betamethasone 0.1% Cream 15 GM TUBE TOP SCH ×2 (08:58→20:00)
[2018-11-03] MEDS: Senokot S 8.6-50 MG TAB PO SCH ×2 (08:58→20:00)
[2018-11-03] MEDS: Rivastigmine 9.5mg/24 Hour PATCH TD SCH (08:58)
[2018-11-03] MEDS: EUCERIN CREME 57 GRAM TUBE TP SCH ×2 (08:59→19:59)
[2018-11-03] MEDS: Temazepam 15 MG CAP PO SCH (19:59)
--- NOTE | 2018-11-03 21:43 | PRG ---
DATE OF SERVICE: 11/03/2018 SUBJECTIVE: The patient is resting in bed, but awake and alert, had no complaint. His , Mirna, is with him. OBJECTIVE: GENERAL: The patient appears in no distress. He looks comfortable. VITAL SIGNS: His temp is 97.2, pulse 68, respirations 20, O2 saturation 97% on 4 L, blood pressure 143/73. LUNGS: Clear. HEART: Regular rate. FBS 116. ASSESSMENT: 1. Fall. a. Occurred on 10/26/2018. b. Etiology secondary to his severe weakness and gait abnormality. c. Resulting in closed and displaced fracture of the right lateral sixth and seventh ribs. 1. Symptomatically improved, pain controlled as of 11/02/2018. d. No subsequent falls as 11/03/2018. 2. Severe generalized weakness. a. Complicated by a fall. b. Requires assistance with all of his ADLs. c. Controlled as of 11/03/2018. 3. Severe constipation. a. Complicated by large fecal impaction with possible stercoral colitis. b. Much improved. Has passed multiple large bowel movements as of 10/31/2018. 4. Advanced Parkinson disease. 5. Dementia. a. Complicated by behavioral issues that are controlled as of 11/03. 6. Coronary artery disease. a. Status post coronary artery bypass surgery. b. Asymptomatic. 7. Hypercholesterolemia. 8. History of compression fracture of T8. a. CT scan of the thoracic lumbar spine showed little increased prominence of the compression of T8. 9. Chronic hypoxemia. a. CT angio of the chest done on the evening of 10/29/2018 showed no evidence of pulmonary embolism or congestive heart failure or infiltrate. b. Require supplemental O2. c. Stable with O2 saturation of 96% on 3 L. PLAN: Continue present care. Continue supplemental O2. Continue neb treatments and incentive spirometry. We will continue PT visit with the patient's , Mirna, and tentatively will keep him here during this week for continuation of physical therapy. Plan on discharge to home on Saturday, 11/07. Job ID: [id number] [facility]
[2018-11-04] MEDS: metFORMIN 500 MG TAB PO SCH ×2 (08:12→17:29)
[2018-11-04] MEDS: Senokot S 8.6-50 MG TAB PO SCH ×2 (08:12→20:06)
[2018-11-04] MEDS: Carbidopa/Levodopa CR 50-200 mg Tablet PO SCH ×3 (08:13→20:06)
[2018-11-04] MEDS: Aspirin 81 mg Enteric Coated Tablet PO SCH (08:13)
[2018-11-04] MEDS: Pramipexole Di-HCl 0.25 MG TAB PO SCH ×3 (08:13→20:06)
[2018-11-04] MEDS: Rivastigmine 9.5mg/24 Hour PATCH TD SCH (08:14)
[2018-11-04] MEDS: EUCERIN CREME 57 GRAM TUBE TP SCH ×2 (08:14→21:00)
[2018-11-04] MEDS: Betamethasone 0.1% Cream 15 GM TUBE TOP SCH ×2 (08:14→20:07)
[2018-11-04] MEDS: Polyethylene Glycol 3350 17 GM Packet PO SCH (08:15)
[2018-11-04] MEDS ORDERED: Lorazepam 0.5 MG TAB PO PRN (08:19)
--- NOTE | 2018-11-04 13:33 | PRG ---
DATE OF SERVICE: 11/04/2018 SUBJECTIVE: The patient is doing better. He is working with Physical Therapy and walking better. Yesterday, he walked up to 150 feet twice with a rolling walker. He is requiring moderate assistance with transfers. He had a large bowel movement during the night. OBJECTIVE: GENERAL: The patient is sitting up in a Xochilt chair. He is awake and alert. His caregiver is with him. He appears very comfortable, in no distress. VITAL SIGNS: His temp is 98.7, pulse 78, respirations 20, O2 saturation 96% on 4 L, blood pressure 177/83, last evening pressure was 120/58. LUNGS: Clear. HEART: Regular rate. EXTREMITIES: No edema. ASSESSMENT: 1. Fall. a. Occurred on 10/26/2018. b. Etiology secondary to his severe weakness and gait abnormality. c. Resulting in closed and displaced fracture of the right lateral sixth and seventh ribs. 1. Symptomatically improved, pain controlled as of 11/04/2018. d. No subsequent falls as 11/04/2018. 2. Severe generalized weakness. a. Complicated by a fall. b. Requires assistance with all of his ADLs. c. Improved. Walking up to 150 feet with a rolling walker 2 times a day. Requiring moderate assistance with transfers as of 11/04. 3. Severe constipation. a. Complicated by large fecal impaction with possible stercoral colitis. b. Controlled as of 11/04/2018. 4. Advanced Parkinson disease. 5. Dementia. a. Complicated by behavioral issues. b. Controlled. No behavioral issues and not requiring any lorazepam as of 11/04/2018. 6. Coronary artery disease. a. Status post coronary artery bypass surgery. b. Asymptomatic. 7. Hypercholesterolemia. 8. History of compression fracture of T8. a. CT scan of the thoracic lumbar spine showed little increased prominence of the compression of T8. 9. Chronic hypoxemia. a. CT angio of the chest done on the evening of 10/29/2018 showed no evidence of pulmonary embolism or congestive heart failure or infiltrate. b. Require supplemental O2. c. Stable with O2 saturation of 96% on 3 L. PLAN: Continue present care. Continue PT. Family is making arrangement for his discharge on Saturday, 11/07. Job ID: [id number] [facility]
[2018-11-04] MEDS: Temazepam 15 MG CAP PO SCH (20:06)
[2018-11-05] MEDS: Senokot S 8.6-50 MG TAB PO SCH ×2 (08:41→20:36)
[2018-11-05] MEDS: Polyethylene Glycol 3350 17 GM Packet PO SCH (08:41)
[2018-11-05] MEDS: metFORMIN 500 MG TAB PO SCH ×2 (08:42→17:12)
[2018-11-05] MEDS: Aspirin 81 mg Enteric Coated Tablet PO SCH (08:42)
[2018-11-05] MEDS: Pramipexole Di-HCl 0.25 MG TAB PO SCH ×3 (08:42→20:35)
[2018-11-05] MEDS: Betamethasone 0.1% Cream 15 GM TUBE TOP SCH ×2 (08:42→21:33)
[2018-11-05] MEDS: Carbidopa/Levodopa CR 50-200 mg Tablet PO SCH ×3 (08:42→20:36)
[2018-11-05] MEDS: EUCERIN CREME 57 GRAM TUBE TP SCH ×2 (08:47→20:37)
[2018-11-05] MEDS: Rivastigmine 9.5mg/24 Hour PATCH TD SCH (08:47)
--- NOTE | 2018-11-05 10:35 | PRG ---
DATE OF SERVICE: 11/05/2018 SUBJECTIVE: The patient is doing about the same. His caregiver, who stays with him in the daytime and at home says that in the afternoon, he started to get a little more confused and agitated from the . This morning, he is in Physical Therapy Department and gently exercising on the [employer]. OBJECTIVE: GENERAL: The patient is alert, appears comfortable, in no distress. VITAL SIGNS: Show temperature 98.2, pulse 76, respirations 21, O2 saturation 95 % on 3.5 L, and blood pressure 150/74. LUNGS: Clear. HEART: Regular rate. EXTREMITIES: No edema. LABORATORY DATA: FBS 103. ASSESSMENT: 1. Fall. a. Occurred on 10/26/2018. b. Etiology secondary to his severe weakness and gait abnormality. c. Resulting in closed and displaced fracture of the right lateral sixth and seventh ribs. 1. Symptomatically improved, pain controlled as of 11/05/2018. d. No subsequent falls as 11/04/2018. 2. Severe generalized weakness. a. Complicated by a fall. b. Requires assistance with all of his ADLs. c. Improved. Walking up to 150 feet with a rolling walker 2 times a day. Requiring moderate assistance with transfers as of 11/04. 3. Severe constipation. a. Complicated by large fecal impaction with possible stercoral colitis. b. Controlled as of 11/04/2018. 4. Advanced Parkinson disease. 5. Dementia. a. Complicated by behavioral issues. b. Stable. Still has some symptoms in the afternoon as of 11/05/2018. 6. Coronary artery disease. a. Status post coronary artery bypass surgery. b. Asymptomatic. 7. Hypercholesterolemia. 8. History of compression fracture of T8. a. CT scan of the thoracic lumbar spine showed little increased prominence of the compression of T8. 9. Chronic hypoxemia. a. CT angio of the chest done on the evening of 10/29/2018 showed no evidence of pulmonary embolism or congestive heart failure or infiltrate. b. Require supplemental O2. c. Stable with O2 saturation of 96% on 3 L. PLAN: Continue present care. Continue PT. Plan on discharge on Saturday, 11/07. [facility] ID: [id number] [facility]
[2018-11-05] MEDS: Loratadine 10 MG TAB PO PRN (17:17)
[2018-11-05] MEDS: Temazepam 15 MG CAP PO SCH (20:35)
[2018-11-05] MEDS ORDERED: EXELON TOP SCH (21:00)
[2018-11-06] MEDS: Carbidopa/Levodopa CR 50-200 mg Tablet PO SCH ×3 (08:22→20:54)
[2018-11-06] MEDS: metFORMIN 500 MG TAB PO SCH ×2 (08:22→17:26)
[2018-11-06] MEDS: Pramipexole Di-HCl 0.25 MG TAB PO SCH ×3 (08:23→20:54)
[2018-11-06] MEDS: Aspirin 81 mg Enteric Coated Tablet PO SCH (08:23)
[2018-11-06] MEDS: Senokot S 8.6-50 MG TAB PO SCH ×2 (08:23→20:55)
[2018-11-06] MEDS: Polyethylene Glycol 3350 17 GM Packet PO SCH (08:24)
[2018-11-06] MEDS: EUCERIN CREME 57 GRAM TUBE TP SCH ×2 (08:26→20:53)
[2018-11-06] MEDS: Betamethasone 0.1% Cream 15 GM TUBE TOP SCH ×2 (08:28→20:51)
[2018-11-06] MEDS: Rivastigmine 9.5mg/24 Hour PATCH TD SCH (08:28)
--- NOTE | 2018-11-06 09:57 | PRG ---
DATE OF SERVICE: 11/06/2018 SUBJECTIVE: The patient said he is okay this morning. He had no complaint. His bowels continued to move. He is working with Physical Therapy. Yesterday, he walked 150 feet up to 4 times with a rolling walker and minimum assistance. He requires moderate assistance with transfers. There have not been any major behavioral issues. OBJECTIVE: GENERAL: The patient is lying in bed. His caregiver, Karyna, is shaving him. He looks very comfortable. VITAL SIGNS: His blood pressure is 97.4, pulse 70, respirations 14, O2 saturation 91% on 3 L, blood pressure 155/59. LUNGS: Clear. HEART: Regular rate. LABORATORY DATA: FBS 102. ASSESSMENT: 1. Fall. a. Occurred on 10/26/2018. b. Etiology secondary to his severe weakness and gait abnormality. c. Resulting in closed and displaced fracture of the right lateral sixth and seventh ribs. 1. Symptomatically improved, pain controlled as of 11/06/2018. d. No subsequent falls as 11/06/2018. 2. Severe generalized weakness. a. Complicated by a fall. b. Requires assistance with all of his ADLs. c. Improved. Walking up to 150 feet with a rolling walker and minimum assistance 4 times a day, requires moderate assistance with transfers as of 11/06. 3. Severe constipation. a. Complicated by large fecal impaction with possible stercoral colitis. b. Controlled as of today 11/06/2018. 4. Advanced Parkinson disease. 5. Dementia. a. Complicated by behavioral issues. b. Controlled. No behavioral issues and not requiring any lorazepam as of 11/06/2018. 6. Coronary artery disease. a. Status post coronary artery bypass surgery. b. Asymptomatic. 7. Hypercholesterolemia. 8. History of compression fracture of T8. a. CT scan of the thoracic lumbar spine showed little increased prominence of the compression of T8. 9. Chronic hypoxemia. a. CT angio of the chest done on the evening of 10/29/2018 showed no evidence of pulmonary embolism or congestive heart failure or infiltrate. b. Require supplemental O2. c. Stable with O2 saturation of 96% on 3 L. PLAN: Continue present care. Family making preparation for his discharge tomorrow. Job ID: [id number] [facility]
[2018-11-06] MEDS: Acetaminophen 325 MG TAB PO PRN (13:46)
[2018-11-06] MEDS: Temazepam 15 MG CAP PO SCH (20:55)
[2018-11-07 08:00] VITALS: BP 171/86; TEMP 97.4
[2018-11-07] MEDS: metFORMIN 500 MG TAB PO SCH (08:27)
[2018-11-07] MEDS: Senokot S 8.6-50 MG TAB PO SCH (08:28)
[2018-11-07] MEDS: Aspirin 81 mg Enteric Coated Tablet PO SCH (08:28)
[2018-11-07] MEDS: Acetaminophen 325 MG TAB PO PRN (08:28)
[2018-11-07] MEDS: Carbidopa/Levodopa CR 50-200 mg Tablet PO SCH (08:28)
[2018-11-07] MEDS: Polyethylene Glycol 3350 17 GM Packet PO SCH (08:29)
[2018-11-07] MEDS: Pramipexole Di-HCl 0.25 MG TAB PO SCH (08:29)
[2018-11-07] MEDS: Rivastigmine 9.5mg/24 Hour PATCH TD SCH (08:30)
[2018-11-07] MEDS: EUCERIN CREME 57 GRAM TUBE TP SCH (08:31)
[2018-11-07] MEDS: Betamethasone 0.1% Cream 15 GM TUBE TOP SCH (08:31)
--- NOTE | 2018-11-07 10:44 | DIS ---
DATE OF ADMISSION: 10/31/2018 DATE OF DISCHARGE: 11/07/2018 Admitted to acute care on 10/28, transferred to extended care on 10/31/2018 and discharged on 11/07/2018. FINAL DIAGNOSES: 1. Fall. a. Occurred on 10/26/2018. b. Etiology secondary to his severe weakness and gait abnormality. c. Resulting in closed and displaced fracture of the right lateral sixth and seventh ribs. 1. Symptomatically improved, pain controlled as of 11/07/2018. d. No subsequent falls as 11/06/2018. 2. Severe generalized weakness. a. Complicated by a fall. b. Requires assistance with all of his ADLs. c. Improved. Walking up to 150 feet with a rolling walker and minimum assistance 4 times a day, requires moderate assistance with transfers as of 11/06. 3. Severe constipation. a. Complicated by large fecal impaction with possible stercoral colitis. b. Controlled as of today 11/07/2018. 4. Advanced Parkinson disease. 5. Dementia. a. Complicated by behavioral issues. b. Controlled. No behavioral issues and not requiring any lorazepam as of 11/07/2018. 6. Coronary artery disease. a. Status post coronary artery bypass surgery. b. Asymptomatic. 7. Hypercholesterolemia. 8. History of compression fracture of T8. a. CT scan of the thoracic lumbar spine showed little increased prominence of the compression of T8. 9. Chronic hypoxemia. a. CT angio of the chest done on the evening of 10/29/2018 showed no evidence of pulmonary embolism or congestive heart failure or infiltrate. b. Require supplemental O2. c. Stable with O2 saturation of 96% on 3 L. SUMMARY: The patient is an 88-year-old white male, who has a history of Parkinson disease, dementia with behavioral disturbance, insomnia, coronary artery disease , diabetes type 2, hypertension, and chronic hypoxemia requiring supplemental O2. He resides at his home, where his care is given by his and a caregiver who comes into the home to assist. He has been under Hospice Care. He had a fall several days prior to admission where he had crawled over the bed railings of his bed and fell into the floor. There was no loss of consciousness. The patient has been having a lot of trouble with constipation. Today, he was brought to the emergency room because he was complaining of pain in the right lower lateral chest and bowels had not moved. He was evaluated in the emergency room, and on CT scan, was found to have nondisplaced fracture of the right sixth and seventh ribs. The lungs were clear. There was no effusion. CT scan of the abdomen showed large amount of stools in the colon and a very large fecal impaction with areas of severe thinning in the harrell of the rectum and possible stercoral colitis. He was admitted to the hospital due to the rib fractures with pain, increased weakness, and the severe fecal impaction and constipation. The patient's pain from the rib fractures was managed with Tylenol, and he was given Tylenol No.3 to use as needed. He was continued on his oxygen and placed on neb treatments to assist with his breathing and given a trial of incentive spirometry, which he just was not able to do. He had undergone a CT angio of his chest due to the hypoxemia and elevated D-dimer, but there was no evidence of any pulmonary embolism. His oxygen saturation remained initially in the high 80s and mid 90s on 3 to 4 L, but this gradually improved, where he was maintaining O2 saturation 98% on 3 L. Initially, he was given enemas and was given repeated dose of MiraLAX and required some digital disimpaction for removal of the large fecal impaction. He had multiple bowel movements. He was placed on a regimen of MiraLAX 17 g in 8 ounces of water daily along with Senokot-S 2 tablets b.i.d. and Dulcolax suppository 10 mg per rectum p.r.n. His bowels continued to work well. He was moved to Extended Care on 10/31 and remained there until 11/07. During that time, Physical Therapy worked with him, and he did well with his walking and was able to walk up to 150 feet up to 4 times a day with a rolling walker and minimal assistance. He did require moderate assistance with transfers. The rib pain was well controlled on just Tylenol. He did not require any of the Tylenol 3s and his lungs remained clear. His behavioral issues were controlled with just redirection. He had a caregiver, Karyna, who came in and assisted with his care during the day. By 11/07/2018, he was doing well. His O2 saturation on the 3 L was 98%. His lungs were clear. He had no pain from the rib fractures. His bowels were moving. Family felt they could manage him fine at home. It was intended for him to go back under hospice under [facility] program. DISPOSITION: DIET: Regular diet. ACTIVITIES: Up in a chair as tolerated. O2 at 3 L by nasal cannula in an effort to try to keep the O2 saturation above 89%. Incentive spirometry 4 times a day if he is able to understand and do this. MEDICATIONS: 1. Acetaminophen 325 mg two every 4 hours as needed. 2. Ipratropium and albuterol by nebulizer twice today and every 4 hours as needed. 3. Aspirin 81 mg daily. 4. Dulcolax suppository 10 mg 1 per rectum daily p.r.n. 5. MiraLAX 17 g 8 ounces water daily. 6. Senokot-S 2 tablets b.i.d. 7. Carbidopa-levodopa CR 50/200 half a tablet t.i.d. 8. Loratadine 10 mg daily p.r.n. congestion. 9. Lorazepam 1 mg half a tablet twice today if needed. 10. Metformin 1000 mg b.i.d. 11. Mirapex 0.125 mg t.i.d. 12. Rivastigmine 9.5 mg apply patch daily. 13. Temazepam 15 mg at bedtime. FOLLOWUP: Will see in the office as needed. The patient will be picked back up by [facility]. CODE STATUS: DNR. Job ID: [id number] [facility]
== END 2018-11-07 12:30 | disposition hospice, inpatient (51) | DRG 560 ==
LOC: MADMS 12:06
PROVIDERS: ADMIT Family Medicine; ATTEND Family Medicine
DX: S22.41XD Multiple fractures of ribs, right side, subsequent encounter for fracture with routine healing (principal); F02.81 Dementia in other diseases classified elsewhere, unspecified severity, with behavioral disturbance; Z66 Do not resuscitate; Z51.5 Encounter for palliative care; W19.XXXD Unspecified fall, subsequent encounter; R53.1 Weakness; R26.9 Unspecified abnormalities of gait and mobility; K59.00 Constipation, unspecified; G20 Parkinson's disease; I25.10 Atherosclerotic heart disease of native coronary artery without angina pectoris; E78.00 Pure hypercholesterolemia, unspecified; R09.02 Hypoxemia; G47.00 Insomnia, unspecified; E11.9 Type 2 diabetes mellitus without complications; I10 Essential (primary) hypertension; Z95.1 Presence of aortocoronary bypass graft
CPT/HCPCS: 36416; J7620

== ENCOUNTER 2018-11-13 21:17 | Emergency (ER) | payer MEDICARE, BC ==
[2018-11-13 22:12] LABS: Bilirubin Negative (Negative); Blood, Urine Negative (Negative); Clarity Clear (Clear); Glucose, Urine (Dipstick) Negative (Negative); Leukocyte Negative (Negative); Nitrite Negative (Negative); Protein, Urine (Dipstick) Negative (Neg-Trace); Urobilinogen 0.2 mg/dL (Less than 2)
== END 2018-11-13 22:30 | disposition home or self-care (01) ==
LOC: MADERS 21:17
DX: R31.9 Hematuria, unspecified (principal); G20 Parkinson's disease; I20.9 Angina pectoris, unspecified; Z87.891 Personal history of nicotine dependence; Z79.82 Long term (current) use of aspirin; Z79.899 Other long term (current) drug therapy
CPT/HCPCS: 51701; 81003

== ENCOUNTER 2018-11-16 02:04 | Emergency (ER) | payer MEDICARE, BC ==
[2018-11-16 02:21] LABS: #Lymphocytes 1.3 thou/uL (1.20-3.40); #Monocytes 0.8 thou/uL (0.11-0.59); #Neutrophils 14.8 thou/uL (1.40-6.50); %Basophils 0.3 % (0.0-1.0); %Eosinophils 0.2 % (0.0-10.0); %Lymphocytes 7.7 % (21.0-51.0); %Monocytes 4.7 % (0.0-10.0); %Neutrophils 87.1 % (42.0-75.0); Mean Corpuscular HGB CONC 32.4 g/dL (32.0-36.0); Mean Corpuscular Hemoglobin 32.8 pg (27.0-31.0); Mean Corpuscular Volume 101.1 fL (78.0-98.0); Platelet Count 191 thou/uL (130-400); RBC Distribution Width 12.7 % (11.5-14.5); Red Blood Cell (RBC) Count 4.58 mill/uL (4.70-6.10)
[2018-11-16] MEDS ORDERED: cefTRIAXone\\ROCEPHIN 1 GM VIAL ONE (02:39)
[2018-11-16] MEDS ORDERED: Sodium Chloride 0.9% 1,000 ML ONE (02:39)
[2018-11-16 02:41] LABS: ALT (SGPT) 7 U/L (8-55); AST (SGOT) 12 U/L (5-34); Albumin 4.2 g/dL (3.4-4.8); Alkaline Phosphatase 120 U/L (40-150); Anion Gap 20 mmol/L (10-20); BUN (Urea Nitrogen) 15 mg/dL (8.4-25.7); Bilirubin, Total 0.8 mg/dL (0.2-1.2); CK (CPK) 19 U/L (30-200); Calc. Creatinine Clearance 0 mL/min (70-130); Calcium 9.1 mg/dL (7.8-10.44); Carbon Dioxide 20 mmol/L (23-31); Chloride 105 mmol/L (98-107); Estimated GFR-MDRD 88; Globulin 2.7 g/dL (2.4-3.5); Glucose 201 mg/dL (83-110); Lipase 9 U/L (8-78); Potassium 4.2 mmol/L (3.5-5.1); Protein, Total 6.9 g/dL (5.8-8.1); Sodium 141 mmol/L (136-145)
[2018-11-16] MEDS ORDERED: Acetaminophen 650 MG Suppository ONE (03:18)
[2018-11-16] MEDS ORDERED: Sodium Chloride 0.9% 100 ML BAG ONE (08:06)
--- NOTE | 2018-11-16 08:12 | RAD ---
RADIOGRAPH CHEST 1 VIEW: DATE: 11/16/2018 HISTORY: 88-year-old male with cough FINDINGS: The thoracic aorta is tortuous and ectatic. There is no evidence of airspace density, pulmonary edema , or pneumothorax. The lateral costophrenic angles are not effaced. No cardiomegaly. Sternotomy wires. IMPRESSION: 1) No acute pulmonary findings. 2) ectasia of thoracic aorta.
== END 2018-11-16 03:29 | disposition short-term general hospital (02) ==
LOC: MADERS 02:04
DX: A41.9 Sepsis, unspecified organism (principal); R09.02 Hypoxemia; G20 Parkinson's disease; Z87.891 Personal history of nicotine dependence
CPT/HCPCS: 36415; 71045; 80053; 82550; 83605; 83690; 84484; 85025; 87040; 93005; 96365; 96368; J0696; J1956; J3490; J7050

== ENCOUNTER 2018-11-24 16:08 | Inpatient (IN) | payer MEDICARE, BC ==
[2018-11-24 16:49] VITALS: BMI 21.5
[2018-11-24] MEDS ORDERED: Bisacodyl 10 MG SUPP PR PRN (17:58)
[2018-11-24] MEDS ORDERED: Lorazepam 1 MG TAB PO PRN (17:58)
[2018-11-24] MEDS: Carbidopa/Levodopa CR 50-200 mg Tablet PO SCH (21:55)
[2018-11-24] MEDS: EUCERIN CREME 57 GRAM TUBE TP SCH (21:55)
[2018-11-24] MEDS: Gentamicin Ophth Soln 0.3% 5 ml Bottle EA EYE SCH (21:56)
[2018-11-24] MEDS: Pramipexole Di-HCl 0.25 MG TAB PO SCH (21:57)
[2018-11-24] MEDS: Senokot S 8.6-50 MG TAB PO SCH (21:58)
[2018-11-24] MEDS: Temazepam 15 MG CAP PO SCH (21:58)
[2018-11-24] MEDS: metFORMIN 500 MG TAB PO SCH (21:58)
--- NOTE | 2018-11-25 07:33 | HP ---
CHIEF COMPLAINT: Family has brought him here for palliative care. HISTORY OF PRESENT ILLNESS: The patient is an 88-year-old white male, who has a history of advanced Parkinson's disease, Alzheimer's disease with history of behavioral disturbances, coronary artery disease, diabetes type 2, hypertension, chronic hypoxic respiratory failure requiring supplemental O2. Additionally, he has dysphagia as a result of the Parkinson's. He was hospitalized at [facility] in [place], [place] from 11/16/2018 until 11/24/2018 for acute on chronic respiratory failure with hypoxemia, acute on chronic encephalopathy, hypokalemia, aspiration pneumonia with sepsis, and episode of atrial fibrillation with RVR. He was treated with IV antibiotics and condition was one of gradual decline. He was initially treated with Levaquin and vancomycin, and later switched to meropenem. He completed this couple of days before his transfer here and was switched to oral Levaquin. He has been without fever, but he still required supplemental O2. Speech Therapy had seen him due to the dysphagia and he was placed on a pureed diet with nectar-thickened liquids, but still would remain an aspiration risk. He was extremely weak and could not progress from out of the bed. The patient had been hospitalized prior to this at [facility] from 10/31 to following frequent falls due to his severe weakness resulting in fracture of the right sixth and seventh ribs. The patient's family had met with physicians and palliative care team and asked that he be transferred to [facility] for the palliative care. They did not think that his level of care could be adequately provided by the family in their home. The patient was transferred to [facility] on the afternoon of 11/24/2018. The patient was seen soon after his admission and his daughters, Edelmira and Carmen, and his , Mirna and sister, David were all there and they were able to review with me what had happened and their wishes for palliative management. PAST MEDICAL HISTORY: Hospitalized at [facility] from 11/16 to 11/24 for acute on chronic respiratory failure with hypoxemia, acute on chronic encephalopathy, hypokalemia, lactic acidosis, aspiration pneumonia, urinary tract infection, atrial fibrillation with rapid ventricular response. Hospitalized at [facility] from 10/28/2018 until 11/07/2018 after numerous falls at home that eventually resulted in a fracture of the right sixth and seventh ribs. The patient has advanced Parkinson's disease complicated by dysphagia, Alzheimer's dementia with behavioral disturbances, hypertension, diabetes type 2, coronary artery disease , for which he has gone through coronary artery bypass x4, chronic hypoxic respiratory failure requiring supplemental O2, dyslipidemia, history of non-Hodgkin's lymphoma treated with chemotherapy, GERD, moderate aortic regurgitation, moderate aortic sclerosis. The patient has had a colonoscopy, bilateral inguinal hernia repair, appendectomy, and coronary artery bypass x4. MEDICATIONS: Present medicines; 1. Dulcolax suppository 10 mg 1 per rectum daily p.r.n. 2. Aspirin 81 mg daily. 3. Acetaminophen 325 mg two every 4 hours as needed. 4. Vitamin B12 1000 mcg daily. 5. Sinemet CR 0.5 mg t.i.d. 6. Levaquin 500 mg daily x7 days, started on 11/24. 7. Eucerin cream applied to the skin as needed. 8. Duonebs by nebulizer b.i.d. and every 4 hours as needed. 9. Folic acid 1 mg daily. 10. Lorazepam 1 mg half a tablet twice a day if needed. 11. Loratadine 10 mg daily p.r.n. 12. Exelon patch 9.5 mg apply to skin daily. 13. Mirapex 0.125 mg t.i.d. 14. MiraLAX 17 g 8 ounces water daily. 15. Metformin 1000 mg b.i.d. 16. Temazepam 15 mg at bedtime. 17. Senokot-S 2 b.i.d. as needed. ALLERGIES: PENICILLIN. REVIEW OF SYSTEMS: The patient not really able to go through review of system. According to the family, they have been feeding him a pureed diet with nectar-thickened liquids. He was requiring the oxygen all the time. He is too weak to get up out of bed and requires assistance with all his ADLs. thinks his bowels have been moving okay. HABITS: Alcohol, none. Tobacco, none. SOCIAL HISTORY: The patient is , had been living at his home with care from his and family and a caregiver. CODE STATUS: DNR. PHYSICAL EXAMINATION: GENERAL: Shows an 88-year-old white male, who is lying in bed with the head elevated. He is awake, but very apathetic. He does not appear in any acute distress. VITAL SIGNS: Shows a temperature of 97.0, pulse 71, respirations 16, O2 saturation 94% on 6 L, blood pressure 126/64. His weight is 158. HEAD: Male pattern baldness. There is no evidence of any trauma. EYES: There is a little crusting present and a little mild erythema to the conjunctiva, bilateral, more on the left. Pupils equal, round, and reactive. EARS: TMs are clear. NOSE: Normal mouth and throat. Mucous membranes are moist. NECK: Carotids equal and strong. LUNGS: The patient has very poor breath sounds, could not hear breath sounds over the posterior chest. Anterior chest was clear, but again breath sounds are very limited. HEART: Regular rate. No murmurs. ABDOMEN: Soft. No organomegaly nor areas of tenderness. EXTREMITIES: No edema. SKIN: The patient has a stage II decubitus over the buttock. NEUROLOGIC: The patient is awake, but apathetic. He occasionally will attempt to answer a question, but not able to complete a sentence. He has severe generalized weakness, but no focal weakness. IMPRESSION: 1. Palliative care. a. Progressive weakness such that he requires total care. b. He has required multiple hospitalizations for multiple falls, rib fractures, and most recent aspiration pneumonia. 2. Advanced Parkinson's disease. a. Complicated by severe weakness such that he requires total care in his bed confined. b. Complicated by dysphagia with recent episode of aspiration pneumonia. 3. Alzheimer's dementia. a. Complicated by behavioral problems that are controlled. 4. Hospitalized at [facility] from 11/16/2018 until 11/24/2018 for acute on chronic respiratory failure with hypoxemia, acute on chronic encephalopathy, hypokalemia, lactic acidosis, aspiration pneumonia with sepsis, urinary tract infection, and atrial fibrillation with RVR. 5. Severe generalized weakness. a. Has been progressive such that he is now bed confined. He requires total care. 6. Dysphagia. a. Secondary to his advanced Parkinson's disease. b. Managed with pureed diet with nectar-thickened liquids. 7. Coronary artery disease. a. Status post coronary artery bypass surgery. b. Asymptomatic. 8. Hospitalized at [facility] from 10/28/2018 to 11/07/2018 for multiple falls with fracture of the right sixth and seventh ribs and severe weakness. 9. Bilateral conjunctivitis. 10. Chronic hypoxic respiratory failure. 11. Insomnia. PLAN: The patient has been admitted here for palliative management. Care will center around comfort only. He is bed confined and we will continue this. He is a DNR. We will complete a 7-day course of oral Levaquin. We will stop all nonessential medications. I have visited with the patient's and daughters and they are in agreement with the palliative management and the DNR. See orders. Job ID: [id number] MTDD
[2018-11-25] MEDS: Rivastigmine 9.5mg/24 Hour PATCH TD SCH (08:49)
[2018-11-25] MEDS: EUCERIN CREME 57 GRAM TUBE TP SCH ×2 (08:50→20:25)
[2018-11-25] MEDS: Gentamicin Ophth Soln 0.3% 5 ml Bottle EA EYE SCH ×4 (08:50→20:25)
[2018-11-25] MEDS: Carbidopa/Levodopa CR 50-200 mg Tablet PO SCH ×3 (09:07→20:25)
[2018-11-25] MEDS: Pramipexole Di-HCl 0.25 MG TAB PO SCH ×3 (09:08→20:26)
[2018-11-25] MEDS: metFORMIN 500 MG TAB PO SCH ×2 (09:08→20:26)
[2018-11-25] MEDS: Senokot S 8.6-50 MG TAB PO SCH ×2 (09:08→20:26)
[2018-11-25] MEDS: Saccharomyces boulardii 250 MG CAP PO SCH (09:08)
[2018-11-25] MEDS: Polyethylene Glycol 3350 17 GM Packet PO SCH (09:08)
[2018-11-25] MEDS ORDERED: Acetaminophen 325 MG TAB PO PRN (10:04)
--- NOTE | 2018-11-25 10:29 | PRG ---
DATE OF SERVICE: 11/25/2018 SUBJECTIVE: The patient's daughter, Edelmira, is with him. They had a caregiver stayed in the night. His night was uneventful. This morning, there have been no complaints, but the patient has very limited ability to verbally communicate. OBJECTIVE: GENERAL: The patient is lying in bed with the head elevated. He looks comfortable. VITAL SIGNS: His temperature is 98.1, pulse 72, respirations 14, O2 saturation 93% on 4 L, blood pressure 116/60. LUNGS: Anterior chest is clear. Breath sounds are very poor. Could not hear breaths much in way of breath sounds posteriorly. HEART: Regular rate. EXTREMITIES: No edema. ASSESSMENT: 1. Palliative care. a. Progressive weakness such that he requires total care. b. He has required multiple hospitalizations for multiple falls, rib fractures, and most recent aspiration pneumonia. c. The patient appears comfortable as of 11/25/2018. 2. Advanced Parkinson's disease. a. Complicated by severe weakness such that he requires total care in his bed confined. b. Complicated by dysphagia with recent episode of aspiration pneumonia. 3. Alzheimer's dementia. a. Complicated by behavioral problems that are controlled. 4. Hospitalized at [facility] from 11/16/2018 until 11/24/2018 for acute on chronic respiratory failure with hypoxemia, acute on chronic encephalopathy , hypokalemia, lactic acidosis, aspiration pneumonia with sepsis, urinary tract infection, and atrial fibrillation with RVR. 5. Severe generalized weakness. a. Has been progressive such that he is now bed confined. He requires total care. 6. Dysphagia. a. Secondary to his advanced Parkinson's disease. b. Managed with pureed diet with nectar-thickened liquids. 7. Coronary artery disease. a. Status post coronary artery bypass surgery. b. Asymptomatic. 8. Hospitalized at [facility] from 10/28/2018 to 11/07/2018 for multiple falls with fracture of the right sixth and seventh ribs and severe weakness. 9. Bilateral conjunctivitis. 10. Chronic hypoxic respiratory failure. 11. Insomnia. PLAN: PLAN: Continue comfort measures. Job ID: [id number] MTDD
[2018-11-25] MEDS ORDERED: Morphine 10 MG/0.5 ML ORAL SYRINGE SL PRN ×4 (13:15→13:44)
[2018-11-25] MEDS: Temazepam 15 MG CAP PO SCH (20:26)
[2018-11-26] MEDS: Rivastigmine 9.5mg/24 Hour PATCH TD SCH (08:22)
[2018-11-26] MEDS: Gentamicin Ophth Soln 0.3% 5 ml Bottle EA EYE SCH ×4 (08:22→20:31)
[2018-11-26] MEDS: metFORMIN 500 MG TAB PO SCH (08:28)
[2018-11-26] MEDS: Carbidopa/Levodopa CR 50-200 mg Tablet PO SCH ×3 (08:28→20:31)
[2018-11-26] MEDS: EUCERIN CREME 57 GRAM TUBE TP SCH ×2 (08:28→20:32)
[2018-11-26] MEDS: Saccharomyces boulardii 250 MG CAP PO SCH (08:29)
[2018-11-26] MEDS: Pramipexole Di-HCl 0.25 MG TAB PO SCH ×3 (08:29→20:32)
[2018-11-26] MEDS: Polyethylene Glycol 3350 17 GM Packet PO SCH (08:29)
[2018-11-26] MEDS: Senokot S 8.6-50 MG TAB PO SCH ×2 (08:29→20:32)
--- NOTE | 2018-11-26 11:14 | PRG ---
DATE OF SERVICE: 11/26/2018 SUBJECTIVE: Yesterday, the patient seemed uncomfortable, would not take any oral medication. He was started on morphine concentrate that was given sublingual. He was given 5 mg sublingual and this was repeated during the night. This seemed to work very well. He slept through the night according to the family, but he has run some temperature during the night that was a low grade, for which he was given a Tylenol suppository. He is taking a little bit by mouth as daughter, Edelmira, said that yesterday, he did drink a shake. He frequently will refuse to take any oral medication. OBJECTIVE: GENERAL: The patient is resting comfortably in bed, awakened during the exam, but did not attempt to talk. He appears comfortable, in no distress. VITAL SIGNS: His temperature is 98.2, pulse 76, respirations 16, O2 saturation 94%, blood pressure 118/65. LUNGS: Clear. Breath sounds were little better. HEART: Regular rate. ASSESSMENT: 1. Palliative care. a. Progressive weakness such that he requires total care. b. He has required multiple hospitalizations for multiple falls, rib fractures, and most recent aspiration pneumonia. c. The patient was started on morphine concentrate sublingual. The patient seemed very comfortable this morning as of 11/26/2018. 2. Advanced Parkinson's disease. a. Complicated by severe weakness such that he requires total care in his bed confined. b. Complicated by dysphagia with recent episode of aspiration pneumonia. 3. Alzheimer's dementia. a. Complicated by behavioral problems that are controlled. 4. Hospitalized at [facility] from 11/16/2018 until 11/24/2018 for acute on chronic respiratory failure with hypoxemia, acute on chronic encephalopathy , hypokalemia, lactic acidosis, aspiration pneumonia with sepsis, urinary tract infection, and atrial fibrillation with RVR. 5.Severe generalized weakness. a. Has been progressive such that he is now bed confined. He requires total care. 6. Dysphagia. a. Secondary to his advanced Parkinson's disease. b. Managed with pureed diet with nectar-thickened liquids. c. Taking little oral nutrition as of 11/26/2018. 7. Coronary artery disease. a. Status post coronary artery bypass surgery. b. Asymptomatic. 8. Hospitalized at [facility] from 10/28/2018 to 11/07/2018 for multiple falls with fracture of the right sixth and seventh ribs and severe weakness. 9. Bilateral conjunctivitis. 10. Chronic hypoxic respiratory failure. 11. Insomnia. PLAN: Continue comfort measures. We will use the morphine is as needed. He is refusing many of his oral medications. His Tylenol has been switched to per rectum, if needed for any fever elevation. We will stop his metformin and Florastor. The patient's condition is gradually declining. Job ID: [id number] MTDD
[2018-11-26] MEDS: Temazepam 15 MG CAP PO SCH (20:32)
[2018-11-27] MEDS: EUCERIN CREME 57 GRAM TUBE TP SCH ×2 (09:00→21:50)
[2018-11-27] MEDS: Gentamicin Ophth Soln 0.3% 5 ml Bottle EA EYE SCH ×4 (09:14→21:49)
[2018-11-27] MEDS: Rivastigmine 9.5mg/24 Hour PATCH TD SCH (09:14)
[2018-11-27] MEDS: Polyethylene Glycol 3350 17 GM Packet PO SCH (09:24)
[2018-11-27] MEDS: Carbidopa/Levodopa CR 50-200 mg Tablet PO SCH ×3 (09:24→21:23)
[2018-11-27] MEDS: Pramipexole Di-HCl 0.25 MG TAB PO SCH ×3 (09:25→21:24)
[2018-11-27] MEDS: Senokot S 8.6-50 MG TAB PO SCH ×2 (09:25→21:24)
--- NOTE | 2018-11-27 11:40 | PRG ---
DATE OF SERVICE: 11/27/2018 SUBJECTIVE: The patient lying in bed with the head elevated. His daughter, Edelmira, is here with him. She said that he is doing well. He has been very comfortable. He had a good night. Said he is not eating. He takes a few sips of some liquids. She said though, he has been very comfortable. OBJECTIVE: GENERAL: The patient is lying in bed with the head elevated about 45 degrees. He is alert, smiling. Did not attempt to talk, but appears in no distress. VITAL SIGNS: His temperature is 98, pulse 82, respirations 22, O2 saturation 95 % on room air, blood pressure 129/63. LUNGS: Clear. There are decreased breath sounds at the bases. HEART: Regular rate. ASSESSMENT: 1. Palliative care. a. Progressive weakness such that he requires total care. b. He has required multiple hospitalizations for multiple falls, rib fractures, and most recent aspiration pneumonia. c. The patient was started on morphine concentrate sublingual. The patient seemed very comfortable this morning as of 11/27/2018. 2. Advanced Parkinson's disease. a. Complicated by severe weakness such that he requires total care in his bed confined. b. Complicated by dysphagia with recent episode of aspiration pneumonia. 3. Alzheimer's dementia. a. Complicated by behavioral problems that are controlled. 4. Hospitalized at [facility] from 11/16/2018 until 11/24/2018 for acute on chronic respiratory failure with hypoxemia, acute on chronic encephalopathy, hypokalemia, lactic acidosis, aspiration pneumonia with sepsis, urinary tract infection, and atrial fibrillation with RVR. 5.Severe generalized weakness. a. Has been progressive such that he is now bed confined. He requires total care. 6. Dysphagia. a. Secondary to his advanced Parkinson's disease. b. Managed with pureed diet with nectar-thickened liquids. c. Taking little oral nutrition as of 11/26/2018. 7. Coronary artery disease. a. Status post coronary artery bypass surgery. b. Asymptomatic. 8. Hospitalized at [facility] from 10/28/2018 to 11/07/2018 for multiple falls with fracture of the right sixth and seventh ribs and severe weakness. 9. Bilateral conjunctivitis. 10. Chronic hypoxic respiratory failure. 11. Insomnia. 12. Anorexia. PLAN: Continue comfort measures. Job ID: [id number] [facility]
[2018-11-27] MEDS: Temazepam 15 MG CAP PO SCH (21:24)
[2018-11-28] MEDS: Rivastigmine 9.5mg/24 Hour PATCH TD SCH (08:40)
[2018-11-28] MEDS: Gentamicin Ophth Soln 0.3% 5 ml Bottle EA EYE SCH ×4 (08:41→20:17)
[2018-11-28] MEDS: Carbidopa/Levodopa CR 50-200 mg Tablet PO SCH ×3 (08:41→20:16)
[2018-11-28] MEDS: EUCERIN CREME 57 GRAM TUBE TP SCH ×2 (08:41→20:18)
[2018-11-28] MEDS: Polyethylene Glycol 3350 17 GM Packet PO SCH (08:42)
[2018-11-28] MEDS: Senokot S 8.6-50 MG TAB PO SCH ×2 (08:42→20:19)
[2018-11-28] MEDS: Pramipexole Di-HCl 0.25 MG TAB PO SCH ×3 (08:42→20:19)
--- NOTE | 2018-11-28 12:50 | PRG ---
DATE OF SERVICE: 11/28/2018 SUBJECTIVE: The patient has been resting quietly this morning. His and grandson, Aryan Dugan, are with him and daughters have just come in. He has been very comfortable this morning. Yesterday, ate very very little, would take a few sips of liquid. OBJECTIVE: GENERAL: The patient is lying in bed with the head mildly elevated about 30 degrees. He looks comfortable. VITAL SIGNS: Show a temperature 97.3, pulse 69, respirations 20, O2 saturations 94% on 4 L of O2 by nasal cannula. LUNGS: Anteriorly were clear. Posteriorly, the upper lobes were clear, lower lobes hard to hear, much of any air movement due to his poor air movement. HEART: Regular rate. EXTREMITIES: No edema. ASSESSMENT: 1. Palliative care. a. Progressive weakness such that he requires total care. b. He has required multiple hospitalizations for multiple falls, rib fractures, and most recent aspiration pneumonia. c. The patient is very comfortable and free of pain as of 11/28/2018. 2. Advanced Parkinson's disease. a. Complicated by severe weakness such that he requires total care in his bed confined. b. Complicated by dysphagia with recent episode of aspiration pneumonia. 3. Alzheimer's dementia. a. Complicated by behavioral problems that are controlled. b. Complicated by anorexia. 4. Hospitalized at [facility] from 11/16/2018 until 11/24/2018 for acute on chronic respiratory failure with hypoxemia, acute on chronic encephalopathy, hypokalemia, lactic acidosis, aspiration pneumonia with sepsis, urinary tract infection, and atrial fibrillation with RVR. 5.Severe generalized weakness. a. Has been progressive such that he is now bed confined. He requires total care. 6. Dysphagia. a. Secondary to his advanced Parkinson's disease. b. Managed with pureed diet with nectar-thickened liquids. c. Taking very little oral nutrition, typically just a few sips of the liquid that is thickened as of 11/28/2018. 7. Coronary artery disease. a. Status post coronary artery bypass surgery. b. Asymptomatic. 8. Hospitalized at [facility] from 10/28/2018 to 11/07/2018 for multiple falls with fracture of the right sixth and seventh ribs and severe weakness. 9. Bilateral conjunctivitis. 10. Chronic hypoxic respiratory failure. a. Require supplemental O2, stable as of 11/28/2018. 11. Insomnia. 12. Anorexia. PLAN: Continue comfort measures. Job ID: [id number] MTDD
[2018-11-28] MEDS: Morphine 10 MG/0.5 ML ORAL SYRINGE SL PRN (16:13)
[2018-11-28] MEDS: Temazepam 15 MG CAP PO SCH (20:19)
[2018-11-29] MEDS: Morphine 10 MG/0.5 ML ORAL SYRINGE SL PRN ×4 (01:50→20:25)
[2018-11-29] MEDS: Gentamicin Ophth Soln 0.3% 5 ml Bottle EA EYE SCH ×4 (08:28→20:29)
[2018-11-29] MEDS: Carbidopa/Levodopa CR 50-200 mg Tablet PO SCH ×3 (08:28→20:29)
[2018-11-29] MEDS: Polyethylene Glycol 3350 17 GM Packet PO SCH (08:29)
[2018-11-29] MEDS: Pramipexole Di-HCl 0.25 MG TAB PO SCH ×3 (08:29→20:30)
[2018-11-29] MEDS: Senokot S 8.6-50 MG TAB PO SCH ×2 (08:29→20:30)
[2018-11-29] MEDS: Rivastigmine 9.5mg/24 Hour PATCH TD SCH (08:29)
[2018-11-29] MEDS: EUCERIN CREME 57 GRAM TUBE TP SCH ×2 (08:31→20:31)
[2018-11-29] MEDS: Temazepam 15 MG CAP PO SCH (20:30)
[2018-11-30] MEDS: Morphine 10 MG/0.5 ML ORAL SYRINGE SL PRN ×2 (04:19→21:23)
[2018-11-30] MEDS: Carbidopa/Levodopa CR 50-200 mg Tablet PO SCH ×3 (08:14→20:39)
[2018-11-30] MEDS: Pramipexole Di-HCl 0.25 MG TAB PO SCH ×3 (08:14→20:39)
[2018-11-30] MEDS: Polyethylene Glycol 3350 17 GM Packet PO SCH (08:14)
[2018-11-30] MEDS: Senokot S 8.6-50 MG TAB PO SCH ×2 (08:14→20:39)
[2018-11-30] MEDS: Rivastigmine 9.5mg/24 Hour PATCH TD SCH (09:51)
[2018-11-30] MEDS: EUCERIN CREME 57 GRAM TUBE TP SCH ×2 (09:51→20:39)
[2018-11-30] MEDS: Gentamicin Ophth Soln 0.3% 5 ml Bottle EA EYE SCH ×4 (09:51→20:35)
[2018-11-30] MEDS: Temazepam 15 MG CAP PO SCH (20:39)
[2018-12-01] MEDS: Morphine 10 MG/0.5 ML ORAL SYRINGE SL PRN ×3 (03:37→20:33)
--- NOTE | 2018-12-01 07:37 | PRG ---
DATE OF SERVICE: 11/29/2018 SUBJECTIVE: The patient's daughter, Edelmira and grandson Aryan Dugan are with him. They said he has had a good night according to the caregiver that stayed with him. Edelmira said that yesterday all he would do is take a few sips of his drink, would not eat. He has been very comfortable and he has been talking to them. OBJECTIVE: GENERAL: The patient is lying in bed with the head elevated at about 30 degrees. He is alert, talked to me a little bit this morning. He looks very comfortable. VITAL SIGNS: Show a temperature of 98.3, pulse 66, respirations 18, O2 saturation 97% on 4 L, and blood pressure 116/60. LUNGS: The patient's anterior upper chest is clear. He has poor breath sounds at the posterior bases. There are diminished breath sounds and there are some rales that we heard more on the right base than the left. HEART: Regular rate. ASSESSMENT: 1. Palliative care. a. Progressive weakness such that he requires total care. b. He has required multiple hospitalizations for multiple falls, rib fractures, and most recent aspiration pneumonia. c. The patient is very comfortable and free of pain as of 11/29/2018. 2. Advanced Parkinson's disease. a. Complicated by severe weakness such that he requires total care in his bed confined. b. Complicated by dysphagia with recent episode of aspiration pneumonia. 3. Alzheimer's dementia. a. Complicated by behavioral problems that are controlled. b. Complicated by anorexia. 4. Hospitalized at [facility] from 11/16/2018 until 11/24/2018 for acute on chronic respiratory failure with hypoxemia, acute on chronic encephalopathy, hypokalemia, lactic acidosis, aspiration pneumonia with sepsis, urinary tract infection, and atrial fibrillation with RVR. 5.Severe generalized weakness. a. Has been progressive such that he is now bed confined. He requires total care. 6. Dysphagia. a. Secondary to his advanced Parkinson's disease. b. Managed with pureed diet with nectar-thickened liquids. c. Taking very little oral nutrition, typically just a few sips of the liquid that is thickened as of 11/29/2018. 7. Coronary artery disease. a. Status post coronary artery bypass surgery. b. Asymptomatic. 8. Hospitalized at [facility] from 10/28/2018 to 11/07/2018 for multiple falls with fracture of the right sixth and seventh ribs and severe weakness. 9. Bilateral conjunctivitis. 10. Chronic hypoxic respiratory failure. a. Require supplemental O2, stable as of 11/29/2018. 11. Insomnia. 12. Anorexia. PLAN: The patient seemed to be very comfortable. He is not taking in any nutrition and only a few sips of liquids. We will continue palliative management. Job ID: [id number] MTDD
--- NOTE | 2018-12-01 10:37 | PRG ---
DATE OF SERVICE: 12/01/2018 SUBJECTIVE: The patient's , Mirna and daughter, Edelmira are with him. Said he did not eat anything yesterday nor would he take any liquids. Nurses said he will not take any of his medication. He has been a little restless and he has had to have morphine several times. After the morphine, he seems to sleep and be very, very comfortable. OBJECTIVE: GENERAL: This morning, the patient is lying in bed. He is asleep, appears very comfortable. VITAL SIGNS: His temp is 98.7, pulse is 94, respirations are 22, O2 saturation is 94% on 3.5 L, blood pressure is 152/73. LUNGS: Anterior chest clear. Posterior bases, there are diminished breath sounds due to poor respiratory effort. HEART: Regular rate. ASSESSMENT: 1. Palliative care. a. Progressive weakness such that he requires total care. b. He has required multiple hospitalizations for multiple falls, rib fractures, and most recent aspiration pneumonia. c. The patient very comfortable and free of pain. The patient has stopped taking any oral nutrition or fluids as of 12/01/2018. 2. Advanced Parkinson's disease. a. Complicated by severe weakness such that he requires total care in his bed confined. b. Complicated by dysphagia with recent episode of aspiration pneumonia. 3. Alzheimer's dementia. a. Complicated by behavioral problems that are controlled. b. Complicated by anorexia. 4. Hospitalized at [facility] from 11/16/2018 until 11/24/2018 for acute on chronic respiratory failure with hypoxemia, acute on chronic encephalopathy , hypokalemia, lactic acidosis, aspiration pneumonia with sepsis, urinary tract infection, and atrial fibrillation with RVR. 5.Severe generalized weakness. a. Has been progressive such that he is now bed confined. He requires total care. 6. Dysphagia. a. Secondary to his advanced Parkinson's disease. b. Managed with pureed diet with nectar-thickened liquids. c. The patient has ceased taking any oral nutrition or fluids as of 2018. 7. Coronary artery disease. a. Status post coronary artery bypass surgery. b. Asymptomatic. 8. Hospitalized at [facility] from 10/28/2018 to 11/07/2018 for multiple falls with fracture of the right sixth and seventh ribs and severe weakness. 9. Bilateral conjunctivitis. a. Resolved as of 12/01/2018. 10. Chronic hypoxic respiratory failure. a. Require supplemental O2, stable as of 11/29/2018. 11. Insomnia. 12. Anorexia. PLAN: The patient's condition has been more of progressive decline. He has not been taking any oral nutrition for several days nor is he taking any fluids. The nurses said he will not take any of his oral medication. We will continue the comfort measures with proper positioning and supplemental O2. We will stop all oral medications other than his comfort medicines. Job ID: [id number] [facility]
[2018-12-01] MEDS: EUCERIN CREME 57 GRAM TUBE TP SCH ×2 (11:01→20:32)
[2018-12-01] MEDS: Acetaminophen 650 MG Suppository PR PRN ×2 (20:33→23:31)
[2018-12-01] MEDS: Temazepam 15 MG CAP PO SCH (20:33)
--- NOTE | 2018-12-02 10:18 | PRG ---
DATE OF SERVICE: 12/02/2018 SUBJECTIVE: The patient's family including his , 2 daughters, and 2 grandsons are here with him. They said he is taking the morphine several times over the last 24 hours, which has helped. He has not taken any oral nutrition or fluids. He has been awake and at times attempts to talk to them a little bit. The family said though he has been comfortable. OBJECTIVE: GENERAL: The patient is lying in bed. His eyes were open. Any attempts with any movement, he moans. VITAL SIGNS: Show temperature 98.5, pulse 98, respirations 20, O2 saturation 93 % on 4 L. During the night, he had a temperature of a 100.8. LUNGS: Anteriorly are clear. Could hear a little breath sounds at the base. I did not hear any rales. HEART: Regular rate. ASSESSMENT: 1. Palliative care. a. Progressive weakness such that he requires total care. b. He has required multiple hospitalizations for multiple falls, rib fractures, and most recent aspiration pneumonia. c. The patient is comfortable. Requiring morphine intermittently sublingual. He is not taking any oral nutrition or fluids as of 12/02/2018. 2. Advanced Parkinson's disease. a. Complicated by severe weakness such that he requires total care in his bed confined. b. Complicated by dysphagia with recent episode of aspiration pneumonia. 3. Alzheimer's dementia. a. Complicated by behavioral problems that are controlled. b. Complicated by anorexia. 4. Hospitalized at [facility] from 11/16/2018 until 11/24/2018 for acute on chronic respiratory failure with hypoxemia, acute on chronic encephalopathy, hypokalemia, lactic acidosis, aspiration pneumonia with sepsis, urinary tract infection, and atrial fibrillation with RVR. 5.Severe generalized weakness. a. Has been progressive such that he is now bed confined. He requires total care. 6. Dysphagia. a. Secondary to his advanced Parkinson's disease. b. Managed with pureed diet with nectar-thickened liquids. c. The patient has ceased taking any oral nutrition or fluids as of 2018. 7. Coronary artery disease. a. Status post coronary artery bypass surgery. b. Asymptomatic. 8. Hospitalized at [facility] from 10/28/2018 to 11/07/2018 for multiple falls with fracture of the right sixth and seventh ribs and severe weakness. 9. Bilateral conjunctivitis. a. Resolved as of 12/01/2018. 10. Chronic hypoxic respiratory failure. a. Require supplemental O2, stable as of 11/29/2018. 11. Insomnia. 12. Anorexia. PLAN: The patient's condition has been one of continual gradual decline. We will continue comfort measures. The family is in attendance. Job ID: [id number] MTDD
[2018-12-02] MEDS: EUCERIN CREME 57 GRAM TUBE TP SCH ×2 (10:51→20:30)
[2018-12-02] MEDS: Morphine 10 MG/0.5 ML ORAL SYRINGE SL PRN ×3 (11:28→21:39)
[2018-12-02] MEDS ORDERED: Morphine 10 MG/0.5 ML ORAL SYRINGE SL PRN ×2 (18:44→18:45)
[2018-12-02] MEDS: Temazepam 15 MG CAP PO SCH (20:30)
[2018-12-02] MEDS: Acetaminophen 650 MG Suppository PR PRN (20:31)
[2018-12-03] MEDS: Morphine 10 MG/0.5 ML ORAL SYRINGE SL PRN ×4 (05:32→13:40)
[2018-12-03] MEDS ORDERED: Morphine 10 MG/0.5 ML ORAL SYRINGE SL PRN (08:23)
[2018-12-03] MEDS: Artificial Tear Sol 15 ML BOT EA EYE PRN ×2 (08:30→13:30)
[2018-12-03] MEDS: EUCERIN CREME 57 GRAM TUBE TP SCH ×2 (08:30→20:08)
--- NOTE | 2018-12-03 11:37 | PRG ---
DATE OF SERVICE: 12/03/2018 SUBJECTIVE: The patient's condition has been one of continual decline. He has not been taking any liquids nor any oral nutrition. He is becoming a less responsive. He is requiring still intermittent doses of the morphine. OBJECTIVE: GENERAL: This morning, the patient is lying in bed. His eyes were open. He did not attempt to talk. His respirations were increased. He feels warm and he has tachycardia. VITAL SIGNS: His temperature was 99.6, pulse was 150, respirations 22, O2 saturation 89% with supplemental O2, and blood pressure 137/89. HEENT: His lips are dry and parched. Mucous membranesare dry. LUNGS: Anterior chest, clear. Did not attempt to turn him to listen posteriorly due to the discomfort evoked with movement. HEART: Has rapid regular rhythm. ASSESSMENT: 1. Palliative care. a. Progressive weakness such that he requires total care. b. He has required multiple hospitalizations for multiple falls, rib fractures, and most recent aspiration pneumonia. c. Continual decline with increased respiratory rate, pulse rate, and elevation of the temperature, less responsive, requiring increased frequency of the morphine as of 12/03/2018. 2. Advanced Parkinson's disease. a. Complicated by severe weakness such that he requires total care in his bed confined. b. Complicated by dysphagia with recent episode of aspiration pneumonia. 3. Alzheimer's dementia. a. Complicated by behavioral problems that are controlled. b. Complicated by anorexia. 4. Hospitalized at [facility] from 11/16/2018 until 11/24/2018 for acute on chronic respiratory failure with hypoxemia, acute on chronic encephalopathy, hypokalemia, lactic acidosis, aspiration pneumonia with sepsis, urinary tract infection, and atrial fibrillation with RVR. 5.Severe generalized weakness. a. Has been progressive such that he is now bed confined. He requires total care. 6. Dysphagia. a. Secondary to his advanced Parkinson's disease. b. Managed with pureed diet with nectar-thickened liquids. c. The patient has ceased taking any oral nutrition or fluids as of 2018. 7. Coronary artery disease. a. Status post coronary artery bypass surgery. b. Asymptomatic. 8. Hospitalized at [facility] from 10/28/2018 to 11/07/2018 for multiple falls with fracture of the right sixth and seventh ribs and severe weakness. 9. Bilateral conjunctivitis. a. Resolved as of 12/01/2018. 10. Chronic hypoxic respiratory failure. a. Require supplemental O2, stable as of 11/29/2018. 11. Insomnia. 12. Anorexia. PLAN: The patient's condition continues to deteriorate. We will continue comfort measures. He is not taking any oral nutrition. We will continue the liquid tears as needed and just oral care. Visited with the patient's daughter, Edelmira, and she knows his condition is one of deterioration. Job ID: [id number] MTDD
[2018-12-03] MEDS: Acetaminophen 650 MG Suppository PR PRN (17:29)
[2018-12-03] MEDS: Temazepam 15 MG CAP PO SCH (20:09)
[2018-12-04] MEDS: Acetaminophen 650 MG Suppository PR PRN (02:37)
[2018-12-04] MEDS: Artificial Tear Sol 15 ML BOT EA EYE PRN ×2 (02:37→21:07)
[2018-12-04] MEDS: EUCERIN CREME 57 GRAM TUBE TP SCH ×2 (08:28→21:06)
--- NOTE | 2018-12-04 10:38 | PRG ---
DATE OF SERVICE: 12/04/2018 SUBJECTIVE: The patient's condition has been one of continual decline. Since yesterday, he has been unresponsive and having some Williams-Cardenas respiration. He has been running some temperatures up to 101. During the night, he seemed quiet and remained unresponsive. This morning, he is lying in bed, unresponsive. PHYSICAL EXAMINATION: VITAL SIGNS: His temperature was 100.2, pulse 155, respirations 24, O2 saturation 84% on 4 L and his blood pressure was 92/60. CARDIAC: Anterior chest is clear. ASSESSMENT: Continual decline such that he is now unresponsive, tachycardic and hypotensive. PLAN: Continue comfort measures. I visited with the family who is with him and let them know that his condition has been one of continual decline and our goals will remain at comfort. I would not think that he can last too much longer. Job ID: [id number]
[2018-12-04] MEDS: Temazepam 15 MG CAP PO SCH (20:18)
[2018-12-05] MEDS: EUCERIN CREME 57 GRAM TUBE TP SCH ×2 (09:00→20:28)
--- NOTE | 2018-12-05 11:02 | PRG ---
DATE OF SERVICE: 12/05/2018 SUBJECTIVE: The patient remains unresponsive. He continues to have some episodes of temperature elevation up to 100.6. He continues to be tachycardic with a rate of 157, respiratory rates of 30, and O2 saturation remains low at 86 on 4 L. Blood pressure has been low; this morning, it is 103/67. OBJECTIVE: GENERAL: He is unresponsive. CHEST: His anterior chest is clear. CARDIOVASCULAR: The pulse has rapid regular rhythm. ASSESSMENT AND PLAN: His condition continues to decline. I do not think that he will remain with us much longer. His daughters, Carmen and Edelmira, are with him and had visited with him and they appreciated his condition. Job ID: [id number]
[2018-12-05] MEDS: Temazepam 15 MG CAP PO SCH (20:30)
[2018-12-06] MEDS: EUCERIN CREME 57 GRAM TUBE TP SCH ×2 (09:10→21:32)
[2018-12-06] MEDS: Temazepam 15 MG CAP PO SCH (21:31)
[2018-12-07] MEDS: EUCERIN CREME 57 GRAM TUBE TP SCH ×2 (08:29→21:08)
[2018-12-07] MEDS: Morphine 10 MG/0.5 ML ORAL SYRINGE SL PRN (16:11)
[2018-12-07] MEDS: Temazepam 15 MG CAP PO SCH (21:11)
[2018-12-08 07:24] VITALS: BP 106/53; TEMP 97.3
[2018-12-08] MEDS: Morphine 10 MG/0.5 ML ORAL SYRINGE SL PRN (08:30)
--- NOTE | 2018-12-08 08:31 | PRG ---
DATE OF SERVICE: 12/07/2018 SUBJECTIVE: The patient remains unresponsive. This morning, he looks very comfortable. He did not respond to any verbal or tactile stimulation. OBJECTIVE: VITAL SIGNS: His temperature was 96.2, pulse 90, respirations 22, O2 saturation 94% on 4 L, blood pressure 119/63. LUNGS: Anteriorly are clear. Did not attempt to listen posteriorly. HEART: Has a regular rate. NEUROLOGIC: Remains unresponsive. The patient's condition is one of very slow gradual deterioration. We will continue comfort measures. His daughter, Carmen and son-in-law, Aryan are with him and they have not seen that he needs anything more than he is receiving. His time with us really is short. Job ID: [id number]
--- NOTE | 2018-12-08 08:31 | PRG ---
DATE OF SERVICE: 12/06/2018 SUBJECTIVE: The patient remains unresponsive. He periodically will receive his morphine, but anyway appears uncomfortable. He continues to get the Artificial Tears in his eyes for the drowsiness and mouth care. He is repositioned frequently. His family is in attendance. OBJECTIVE: VITAL SIGNS: This morning, his temperature is 96.9, his pulse is down to 96, his respirations are little deeper and at a rate of 24, O2 saturation 93% on 4 L, blood pressure was 131/72, earlier it was 85/57. GENERAL: He remains unresponsive to verbal or tactile stimuli. LUNGS: Anteriorly are clear. HEART: Has a regular rate. ASSESSMENT: Continued decline. PLAN: Continue comfort measures. Visit with family. Job ID: [id number]
[2018-12-08] MEDS: EUCERIN CREME 57 GRAM TUBE TP SCH (09:56)
--- NOTE | 2018-12-08 13:38 | PRG ---
DATE OF SERVICE: 12/08/2018 SUBJECTIVE: The patient's condition has been gradual progressive decline. He remains unresponsive. His pulse is slowing. This morning, it is 48. His respirations are still elevated at 32. His anterior chest is clear. Heart shows regular rate. The patient remains unresponsive to verbal or tactile stimulation. ASSESSMENT: Progressive decline. PLAN: Continue comfort measures. The patient's pulse is slow and respirations are increasing and his time with this probably will not be much longer. His daughter, Katarzyna, is with him. Job ID: [id number]
--- NOTE | 2018-12-09 07:57 | DIS ---
DATE OF ADMISSION: 11/24/2018 DATE OF DISCHARGE: 12/08/2018 DATE OF EXPIRY: 12/08/2018. FINAL DIAGNOSES: 1. Palliative care. a. Progressive weakness such that he requires total care. b. He has required multiple hospitalizations for multiple falls, rib fractures, and most recent aspiration pneumonia. c. Progressive decline and on 12/08/2018. 2. Advanced Parkinson's disease. a. Complicated by severe weakness such that he requires total care in his bed confined. b. Complicated by dysphagia with recent episode of aspiration pneumonia. 3. Alzheimer's dementia. a. Complicated by behavioral problems that are controlled. 4. Hospitalized at [facility] from 11/16/2018 until 11/24/2018 for acute on chronic respiratory failure with hypoxemia, acute on chronic encephalopathy , hypokalemia, lactic acidosis, aspiration pneumonia with sepsis, urinary tract infection, and atrial fibrillation with RVR. 5. Severe generalized weakness. a. Has been progressive such that he is now bed confined. He requires total care. 6. Dysphagia. a. Secondary to his advanced Parkinson's disease. b. Managed with pureed diet with nectar-thickened liquids. c. Ceased eating and taking any oral nutrition or hydration. 7. Coronary artery disease. a. Status post coronary artery bypass surgery. b. Asymptomatic. 8. Hospitalized at [facility] from 10/28/2018 to 11/07/2018 for multiple falls with fracture of the right sixth and seventh ribs and severe weakness. 9. Bilateral conjunctivitis. 10. Chronic hypoxic respiratory failure. 11. Insomnia. SUMMARY: The patient is an 88-year-old white male, who has advanced Parkinsonism complicated by dysphagia, Alzheimer's dementia, coronary artery disease and chronic hypoxic respiratory failure. The patient had been managed at home, but his condition had been one of gradual decline. He had required hospitalization at [facility] from 10/28/2018 to 11/07/2018 for multiple falls resulting in fracture of the right sixth and seventh ribs. He then required hospitalization at [facility] from 11/16/2018 until 11/24/2018 for [id number] respiratory failure with hypoxemia, [id number] encephalopathy, aspiration pneumonia with sepsis and atrial fibrillation with rapid ventricular response. His condition during that hospitalization showed mild improvement, but his overall condition was one of progressive decline. The patient was transferred to [facility] per request of the family for palliative comfort measures. He was admitted at [facility] on 11/24/2018. There he was very weak, was hypoxic, requiring supplemental O2, required total care. He was not able to get up out of the bed. Initially, he was tried on a pureed diet with thickened liquids, but a bit quickly he just quit taking any oral nutrition or fluids and stopped taking any of his medication. He was placed on morphine sublingual for pain and was continued on the supplemental O2 and then positioned in with comfort. His condition gradually declined. He became unresponsive. Gradually, vital signs began deteriorating. The patient's respirations ceased and the patient on the afternoon of 2018 around 3:20 p.m. No resuscitative efforts were attempted per his DNR. His family had been very attentive throughout his hospitalization and were with him at the time he . CAUSE OF : Advanced Parkinsonism complicated by dysphagia with aspiration pneumonia. Job ID: [id number] MTDD
== END 2018-12-08 17:23 | disposition expired | DRG 951 ==
LOC: MADMS 16:27
PROVIDERS: ADMIT Family Medicine; ATTEND Family Medicine
DX: Z51.5 Encounter for palliative care (principal); J96.21 Acute and chronic respiratory failure with hypoxia; J69.0 Pneumonitis due to inhalation of food and vomit; G20 Parkinson's disease; G30.9 Alzheimer's disease, unspecified; Z66 Do not resuscitate; I25.10 Atherosclerotic heart disease of native coronary artery without angina pectoris; E11.9 Type 2 diabetes mellitus without complications; F02.80 Dementia in other diseases classified elsewhere, unspecified severity, without behavioral disturbance, psychotic disturbance, mood disturbance, and anxiety; I10 Essential (primary) hypertension; I48.91 Unspecified atrial fibrillation; E78.5 Hyperlipidemia, unspecified; K21.9 Gastro-esophageal reflux disease without esophagitis; R53.1 Weakness; G47.00 Insomnia, unspecified; H10.9 Unspecified conjunctivitis; R63.0 Anorexia; R00.0 Tachycardia, unspecified; I95.9 Hypotension, unspecified; Z85.72 Personal history of non-Hodgkin lymphomas; Z92.21 Personal history of antineoplastic chemotherapy; Z90.49 Acquired absence of other specified parts of digestive tract; Z95.1 Presence of aortocoronary bypass graft; Z79.82 Long term (current) use of aspirin; Z79.84 Long term (current) use of oral hypoglycemic drugs; Z88.0 Allergy status to penicillin; Z74.01 Bed confinement status; Z68.21 Body mass index [BMI] 21.0-21.9, adult
CPT/HCPCS: J7620